=== PATIENT | male | born 2000 | race Two or more races ===

== ENCOUNTER 2023-03-07 09:41 | Outpatient (REF) | payer OTHER, MEDICAID, SELFPAY ==
[2023-03-07 11:45] LABS: Basophils Percent Auto 0.3 % (0-2); Eosinophils Absolute Auto 0.1 X10*3/uL (0.0-0.4); Eosinophils Percent Auto 1.8 % (0-4); Hematocrit 43.1 % (42.0-52.0); Hemoglobin 14.3 g/dl (14.0-18.0); Imm Gran Abs Auto 0.02 X10*3/uL (0.00-0.03); Imm Gran Pct Auto 0.3 % (0.0-0.4); Lymphocytes Absolute Auto 3.7 X10*3/uL (1.2-4.9); Lymphocytes Percent Auto 56.4 % (20-40); MANUAL DIFF FLAG NO; Mean Corpuscular HGB Conc 33.2 g/dl (31.0-36.0); Mean Corpuscular Hemoglobin 29.3 pg (27.0-33.0); Mean Corpuscular Volume 88.3 fL (80.0-98.0); Mean Platelet Volume 9.6 fL (9.4-12.4); Monocytes Absolute Auto 0.7 X10*3/uL (0.1-1.2); Neutrophils Percent Auto 31.2 % (45-73); Platelet Count 238 X10*3/uL (160-400); Red Blood Count 4.88 X10*6/uL (4.60-5.80); Red Cell Distribution Width 12.5 % (11.0-16.0); White Blood Count 6.5 X10*3/uL (4.8-10.8)
[2023-03-07 11:56] LABS: Estimated Average Glucose 91 mg/dL; Hemoglobin A1c % 4.8 %
[2023-03-07 12:15] LABS: ~HepC Num1 0.21 S/CO (0.00-0.79); ~Hepatitis C Antibody Nonreactive (Nonreactive)
[2023-03-07 12:16] LABS: HBS Num1 12.65 mIU/mL (0-7.99); HBc Num1 0.24 S/CO (0.00-0.79); HBsAGNum1 0.43 S/CO (0.00-0.99); HIV AB/AG Nonreactive (Nonreactive); HIV Num 1 0.05 S/CO (0.00-0.99); Hepatitis B Core Antibody Nonreactive (Nonreactive); Hepatitis B Surface Antigen Negative (Negative); ~Hepatitis B Surface Antibody REACTIVE (Nonreactive)
[2023-03-07 12:36] LABS: Alanine Aminotransferase 22 U/L (0-40); Albumin Level 4.1 g/dL (3.5-5.0); Alkaline Phosphatase 57 U/L (39-117); Anion Gap 15 (12-20); Aspartate Amino Transferase 30 U/L (5-37); Bilirubin Total 0.4 mg/dL (0.0-1.0); Blood Urea Nitrogen 10 mg/dL (9-16); Calcium 9.4 mg/dL (8.4-10.2); Carbon Dioxide 20 mmol/L (22-29); Chloride 111 mmol/L (96-108); Cholesterol 140 mg/dL; Estimated Glomerular Filt Rate > 60; Glucose Random 77 mg/dL (60-115); HDL Cholesterol 43 mg/dL; LDL Cholesterol Calculated 78 mg/dl; Potassium 4.7 mmol/L (3.3-5.1); Sodium 141 mmol/L (135-145); Triglycerides 95 mg/dL
[2023-03-07 12:49] LABS: TSH reflex Free T4 3.27 uIU/mL (0.32-4.0)
[2023-03-08 05:07] LABS: Syphilis Screen Nonreactive (Nonreactive)
[2023-03-12 15:38] LABS: VITAMIN D (1,25 OH) D3 32 pg/mL; Vit D (1,25-Dihydroxy) Total 32 pg/mL (18-72); Vitamin D (1,25 OH) D2 <8 pg/mL
== END 2023-03-07 09:42 | disposition home or self-care (01) ==
LOC: HO.HHCL 09:41
PROVIDERS: Visit Provider Student in an Organized Health Care Education/Training Program
DX: Z00.00 Encounter for general adult medical examination without abnormal findings (principal); Z11.4 Encounter for screening for human immunodeficiency virus [HIV]; Z13.220 Encounter for screening for lipoid disorders; Z13.1 Encounter for screening for diabetes mellitus; Z13.29 Encounter for screening for other suspected endocrine disorder
CPT/HCPCS: 36415; 80053; 80061; 82652; 83036; 84443; 85025; 86592; 86704; 86706; 86780; 86803; 87340; 87389

== ENCOUNTER 2024-01-14 07:44 | Outpatient (REF) | payer OTHER, SELFPAY ==
--- NOTE | 2024-01-14 07:52 | EEG_ITS ---
This is a 16-channel EEG with an EKG lead. The patient is reported alert and awake during the tracing. Background EEG rhythm is low amplitude fast with some lead and muscle artifacts. Photic stimulation does not produce any significant driving. Hyperventilation is not performed. Cardiac lead does not reveal any significant abnormality. No sharp wave spikes or paroxysmal tendency noted. IMPRESSION: Unremarkable EEG. MD ROMIE Gallo/ROCAEL / [id number]
== END 2024-01-14 07:45 | disposition home or self-care (01) ==
LOC: HO.NEURO 07:44
PROVIDERS: PCP Student in an Organized Health Care Education/Training Program; Visit Provider Psychiatry & Neurology Neurology
DX: G93.49 Other encephalopathy (principal); G40.909 Epilepsy, unspecified, not intractable, without status epilepticus
CPT/HCPCS: 95816

== ENCOUNTER 2024-03-25 12:31 | Outpatient (REF) | payer OTHER, SELFPAY ==
[2024-03-25 13:31] LABS: Hematocrit 44.9 % (42.0-52.0); Hemoglobin 14.6 g/dl (14.0-18.0); Mean Corpuscular HGB Conc 32.5 g/dl (31.0-36.0); Mean Corpuscular Hemoglobin 28.1 pg (27.0-33.0); Mean Corpuscular Volume 86.3 fL (80.0-98.0); Mean Platelet Volume 9.6 fL (9.4-12.4); Platelet Count 276 X10*3/uL (160-400); Red Cell Distribution Width 12.9 % (11.0-16.0); White Blood Count 8.3 X10*3/uL (4.8-10.8)
[2024-03-25 13:42] LABS: Estimated Average Glucose 97 mg/dL
[2024-03-25 14:06] LABS: Alanine Aminotransferase 21 U/L (0-40); Albumin Level 4.5 g/dL (3.5-5.0); Alkaline Phosphatase 49 U/L (39-117); Anion Gap 12 (12-20); Aspartate Amino Transferase 21 U/L (5-37); Bilirubin Total 0.4 mg/dL (0.0-1.0); Blood Urea Nitrogen 9 mg/dL (9-16); Calcium 9.6 mg/dL (8.4-10.2); Carbon Dioxide 23 mmol/L (22-29); Chloride 110 mmol/L (96-108); Estimated Glomerular Filt Rate > 60; Glucose Random 82 mg/dL (60-115); Potassium 3.9 mmol/L (3.3-5.1); Sodium 141 mmol/L (135-145); Total Protein 8.3 g/dL (6.5-8.0)
[2024-03-25 14:23] LABS: TSH reflex Free T4 3.32 uIU/mL (0.32-4.0); Vitamin D 25-OH Total 26.8 ng/mL (>30)
[2024-03-26 08:21] LABS: Hepatitis A Antibody IgG REACTIVE (Nonreactive); ~Hepatitis A Antibody IgG 10.33 S/CO (0.00-0.99)
[2024-03-28 12:43] LABS: Rubella IgG Antibody 3.22 Index
== END 2024-03-25 12:32 | disposition home or self-care (01) ==
LOC: HO.HHCL 12:31
PROVIDERS: Visit Provider Student in an Organized Health Care Education/Training Program
DX: Z00.00 Encounter for general adult medical examination without abnormal findings (principal); Z13.1 Encounter for screening for diabetes mellitus
CPT/HCPCS: 36415; 80053; 82306; 83036; 84443; 85027; 86708; 86735; 86762; 86765; 86787

== ENCOUNTER 2024-09-09 18:57 | Outpatient (REF) | payer OTHER, SELFPAY ==
--- OUTSIDE RECORDS SUMMARY | 2024-09-09 18:59 | XMS_ITS | Encounter Summary ---
Author Organization [employer] Address [address] [place] [address] 7 [place] [address] Care Team Providers Care Police Detective Name Role Phone Tonia Carlson MD Primary Care Pro vider Reason for Visit * Reason Onset Date Comments New Patient Appt 01/07/2023 Encounter Details Date Type Department Care Team ([facility] st Contact Info) Description 01/07/2023 Telephone [facility] MEDICINE [address] [place] [address] Festus Moreno MD [address] [place] [address] New Patient Appt Social History Tobacco Use Types Packs/Day Years Used Date Smoking Tobacco: Never Assessed Sex and Gender Information Value Date Recorded Sex Assigned at Male 02/04/2023 9:20 AM EDT Legal Sex Male 3:04 PM EDT Gender Identity Male 02/04/2023 9:20 AM EDT Sexual Orientation Straight 02/04/2023 9: 20 AM EDT documented as of this encounter Miscellaneous Notes * Telephone Encounter - Maggie Ramirez - 01/07/2023 1:53 PM EDT PAR Maggie Gregory called pt mother Tonia Chen to Offer RN ENDOSCOPY appt. Pt demographics and insurance information were verified. Mother reports the Following medical conditions: Brain Condition, Microscopic, Developmental Issues, Pilostic, Schizophrenia, and New Skin problem. Mother currently takes Medications: Depaconic 500 mg Tablet, Atiya 200 mg Tablet, Jardiance 40 mg Tablet and desmopressin. RN ENDOSCOPY appt with on 02/04/[address] Almaraz @ 9:15 am. Pt will be sent appt reminder card and medical release form and agrees to complete and to return to medical records prior to RN ENDOSCOPY appt. documented in this encounter Plan of Treatment Upcoming Encounters Date Type Department Care Team (Late st Contact Info) Description 11/10/2024 1:15 PM EDT Office Visit [facility] MEDICINE [address] [place] [address] [phone] Tonia Carlson MD [address] [place] [phone] documented as of this encounter Visit Diagnoses Not on filedocumented in this encounter Care Teams Police Detective Relationship Specialty Start Date End Date Tonia Carlson MD [address] [place] [address] [phone] PCP - General Internal Medicine 02/04/23 documented as of this encounter
--- OUTSIDE RECORDS SUMMARY | 2024-09-09 18:59 | XMS_ITS | Encounter Summary ---
Author Organization [employer] Address [address] 7[address] [place] [address] Care Team Providers Care Clinical Cytopathologist Name Role Phone Tonia Carlson MD Primary Care Pro vider Encounter Details Date Type Department Care Team (Latest Contact Info) Description 09/09/2024 Travel Social History Tobacco Use Types Packs/Day Years Used Date Smoking Tobacco: Never Passive Smoke Exposure: Never Smokeless Tobacco: Never Alcohol Use Standard Drinks/Week Comments Never 0 (1 standard drink = 0.6 oz pur e alcohol) Depression Answer Date Recorded Patient Health Questionnaire-9 Score 0 03/25/2024 Patient Health Questionnaire-9 Score 0 03/25/2024 Last PHQ-9: Questionnaire Data Not on file 0 03/25/2024 Housing Stability Answer Date Recorded What is your housing situation today? I have adonis grullon 05/31/[address] you li ve. Do you have problems with any of the following? None of the above 05/31/2023 Food Insecurity Answer Date Recorded Within the past 12 months, y ou worried that your food would run out before you got money to buy more: Never True 05/31/2023 Within the past 12 months,th e food you bought just didn't last and you didn't have enough money to get more: Never True Transportation Answer Date Recorded In the past 12 months, has l ack of transportation kept you from medical appts, meetings, work or from getting things needed for daily living? No 05/31/2023 Utilities Answer Date Recorded In the past 12 months, has t he electric, gas, oil or water company threatened to shut off services in your home? No 05/31/2023 Depression Answer Date Recorded Patient Health Questionnaire-2 Score 0 03/25/2024 Sex and Gender Information Value Date Recorded Sex Assigned at Male 02/04/2023 9:20 AM EDT Legal Sex Male 3:04 PM EDT Gender Identity Male 02/04/2023 9:20 AM EDT Sexual Orientation Straight 02/04/2023 9: 20 AM EDT documented as of this encounter Plan of Treatment Upcoming Encounters Date Type Department Care Team (Late st Contact Info) Description 11/10/2024 1:15 PM EDT Office Visit [facility] MEDICINE [address] [place] [address] Tonia Carlson MD [address] [place] [phone] documented as of this encounter Visit Diagnoses Not on filedocumented in this encounter Additional Health Concerns Assessment Noted Time PHQ-9 Depression Total Score: 0 03/25/20 24 10:53 AM EDT documented as of this encounter Care Teams Clinical Cytopathologist Relationship Specialty Start Date End Date Tonia Carlson MD [address] [place] [phone] PCP - General Internal Medicine 02/04/23 documented as of this encounter
--- OUTSIDE RECORDS SUMMARY | 2024-09-09 18:59 | XMS_ITS | Encounter Summary ---
Author Organization [employer] Address [address] [place] [address] 7 [place] [address] Care Team Providers Care Mechanical Supervisor Name Role Phone Tonia Carlson MD Primary Care Pro vider Reason for Visit * Reason Onset Date Comments Appointment Request 08/28/2024 Encounter Details Date Type Department Care Team ([facility] st Contact Info) Description 08/28/2024 Telephone [facility]ICINE [address] [place] [address] Tonia Carlson MD [address] [place] [address] Appointment Request Social History Tobacco Use Types Packs/Day Years [...] encounter Miscellaneous Notes * Telephone Encounter - Shirley Márquez RN - 08/31/2024 12:41 PM EST Patient has wheezing when he walks. Mom thinks its because he is fat now . Mother stating she wastold she just needs to call us to get in home appointments. Per message patient can call [facility] and ask for Instead or or other services. Mother stated she can bring him to ED but she was told we schedule the appointment. Advised maybe the nurse she spoke too can but on the floor unaware t=how to do that and patient can call their insurance to see what they offer. Patient verbalized understanding and denied having any further questions or concerns at this time. * Telephone Encounter - Jax Salcido - 08/28/2024 8:11 AM EST TC from pt mom that stated that She spoke with a Nurse that told her that she doesn't have to make Apt with son that they are able to offer her Services at her house. For more information Contact pt mom at [phone] documented in this encounter Plan of Treatment Upcoming Encounters Date Type Department Care Team (Late st Contact Info) Description 11/10/2024 1:15 PM EDT Office Visit [facility] MEDICINE [address] [place] [phone] Tonia Carlson MD [address] [place] [address] documented as of this encounter Visit Diagnoses Not on filedocumented in this encounter Additional Health Concerns Assessment Noted Time PHQ-9 Depression Total Score: 0 03/25/20 24 10:53 AM EDT documented as of this encounter Care Teams Mechanical Supervisor Relationship Specialty Start Date End Date Tonia Carlson MD [address] [place] [address] PCP - General Internal Medicine 02/04/23 documented as of this encounter
--- OUTSIDE RECORDS SUMMARY | 2024-09-09 18:59 | XMS_ITS | Encounter Summary ---
Author Organization [employer] Address [address] [place] [address] 7 [place] [address] Care Team Providers Care Coffee Break Attendant Name Role Phone Tonia Carlson MD Primary Care Pro vider Reason for Visit * Reason Onset Date Comments Nurse Triage 09/03/2024 Encounter Details Date Type Department Care Team ([facility] st Contact Info) Description 09/03/2024 Telephone [facility] MEDICINE [address] [place] [address] Tonia Carlson MD [address] [place] [address] Nurse Triage (/) Social History Tobacco Use Types Packs/Day Years [...] encounter Miscellaneous Notes * Telephone Encounter - Rochelle Nielson LPN - 09/03/2024 8:41 AM EST Triage call returned with BLS #[id number] [facility]. Call placed to patient Mom at listed number x 2 no answer. Additional call placed with BLS #[id number] [place]. Attempted x 2 again no answer. * Telephone Encounter - Jax Salcido - 09/03/2024 8:29 AM EST Symptom: Lethargic (Tired) Outcome: Transfer to a nurse or provider NOW! Reason: Trouble walking The caller accepted this outcome. Contact pt Mom at [phone] documented in this encounter Plan of Treatment Upcoming Encounters Date Type Department Care Team (Late st Contact Info) Description 11/10/2024 1:15 PM EDT Office Visit [facility] MEDICINE [address] [place] [address] [phone] Tonia Carlson MD [address] [place], [place] [phone] documented as of this encounter Visit Diagnoses Not on filedocumented in this encounter Additional Health Concerns Assessment Noted Time PHQ-9 Depression Total Score: 0 03/25/20 10:53 AM EDT documented as of this encounter Care Teams Coffee Break Attendant Relationship Specialty Start Date End Date Tonia Carlson MD [address] [place] [phone] PCP - General Internal Medicine 02/04/23 documented as of this encounter
--- OUTSIDE RECORDS SUMMARY | 2024-09-09 18:59 | XMS_ITS | Encounter Summary ---
Author Organization [employer] Address [address] 7[address] [place] [address] Care Team Providers Care Account Management Specialist Name Role Phone Tonia Carlson MD Primary Care Pro vider Encounter Details Date Type Department Care Team (Late st Contact Info) Description 09/09/2024 10:30 AM EST Office Visit [facility] MEDICINE [address] [place] [address] Joyce River FNP [address] [place] [address] Cough in adult Social History Tobacco Use Types Packs/Day Years Used Date Smoking Tobacco: Never Passive Smoke Exposure: Never Smokeless Tobacco: Never Tobacco Cessation:Counseling Given: Not Answered Alcohol Use Standard Drinks/Week Comments Never 0 [...] AM EDT documented as of this encounter Last Filed Vital Signs Vital Sign Reading Time Taken Comments Blood Pressure 132/86 09/09/2024 10:49 AM EST Pulse 99 09/09/2024 10:48 AM EST Temperature 36.2 ??C (97.1 ??F) 09/09/2024 10:[address] Respiratory Rate 20 09/09/2024 10:48 AM EST Oxygen Saturation 98% 09/09/2024 10:48 AM EST Inhaled Oxygen Concentration - - Weight 85 kg (187 lb 6.4 oz) 09/09/2024 10:48 AM EST Height 162 cm (5' 3.78 ) 09/09/2024 10:48 AM EST Body Mass Index 32.39 09/09/2024 10:48 AM EST documented in this encounter Plan of Treatment Upcoming Encounters Date Type Department Care Team (Late st Contact Info) Description 11/10/2024 1:15 PM EDT Office Visit [facility] MEDICINE [address] [place] [phone] Tonia Carlson MD [address] [place] [address] Scheduled Orders Name Type Priority Associated Diagnoses Orde r Schedule Respiratory Viral Panel PCR Lab Routine Cough in adult Expected: 09/09/2024 (Approximate), Expires: 09/09/2025 documented as of this encounter Procedures Procedure Name Priority Date/Time Associated Diagnosis Comments POCT COVID-19 AG MCKOY ID NOW Routine 09/09/2024 12:26 PM EST Cough in adult POCT INFLUENZA A (ID NOW RAPID MOLECULAR) Routine 09/09/2024 12:25 PM EST Cough in adult POCT INFLUENZA B (ID NOW RAPID MOLECULAR) Routine 09/09/2024 12:24 PM EST Cough in adult documented in this encounter Results * POCT Rapid Covid-19 MCKOY ID NOW (09/09/2024 12:26 PM EST) Pathologist [facility] Coronavirus Antigen PCR Negative Negative, Indeterminate, None Detected, Invalid, Specimen unsatisfactory for evaluation, Weakly Positive QC Media Lot # [id number] Lot# Expiration Date Swab 09/09/2024 12:2 6 PM EST Joyce Phalen FEEDER SWITCHBOARD OPERATOR POINT OF CARE TEST ENTER/EDIT ORDERABLES Final Result * POCT Rapid Influenza A MCKOY ID NOW (09/09/2024 12:25 PM EST) Pathologist [facility] Influenza A Negative Negative, Indeterminate [facility] QC Media Lot # [id number] [facility] Lot# Expiration Date [facility] Swab 09/09/2024 12:2 5 PM EST Joyce Phalen FEEDER SWITCHBOARD OPERATOR POINT OF CARE TEST ENTER/EDIT ORDERABLES Final Result [facility] [address] [place] [phone] * POCT Rapid Influenza B MCKOY ID NOW (09/09/2024 12:24 PM EST) Pathologist [facility] Influenza B Negative Negative, Indeterminate [facility] QC Media Lot # [id number] [facility] Lot# Expiration Date [facility] Swab 09/09/2024 12:2 4 PM EST us Joyce Phalen FEEDER SWITCHBOARD OPERATOR POINT OF CARE TEST ENTER/EDIT ORDERABLES Final Result [facility] [address] [place] [address] [phone] documented in this encounter Visit Diagnoses Diagnosis Cough in adult documented in this encounter Additional Health Concerns Assessment Noted Time PHQ-9 Depression Total Score: 0 03/25/20 24 10:53 AM EDT documented as of this encounter Care Teams Account Management Specialist Relationship Specialty Start Date End Date Toina Carlson MD [address] [place] [address] PCP - General Internal Medicine 02/04/23 documented as of this encounter
--- OUTSIDE RECORDS SUMMARY | 2024-09-09 18:59 | XMS_ITS | Encounter Summary ---
Author Organization [facility] [facility] Address [address] [place] [address] Care Team Providers Care Brine Room Laborer Name Role Phone Tonia Carlson MD Primary Care Pro vider Reason for Visit * Reason Comments Med Refill Encounter Details Date Type Department Care Team (Late Contact Info) Description 04/14/2023 Refill [facility] MEDICINE [address] [place] [address] [phone] Tonia Carlson MD [address] [place] [address] [phone] Social History Tobacco Use Types Packs/Day Years Used Date Smoking Tobacco: Never Passive Smoke Exposure: Never Smokeless Tobacco: Never Alcohol Use Standard Drinks/Week Comments Never 0 (1 standard drink = 0.6 oz pur e alcohol) Depression Answer Date Recorded Patient Health Questionnaire-9 Score 13 02/04/2023 Depression Answer Date Recorded Patient Health Questionnaire-2 Score 3 02/04/2023 Sex and Gender Information Value Date Recorded Sex Assigned at Male 02/04/2023 9:20 AM EDT Legal Sex Male 3:04 PM EDT Gender Identity Male 02/04/2023 9:20 AM EDT Sexual Orientation Straight 02/04/2023 9: 20 AM EDT documented as of this encounter Plan of Treatment Upcoming Encounters Date Type Department Care Team (Late st Contact Info) Description 11/10/2024 1:15 PM EDT Office Visit [facility] MEDICINE [address] [place] [address] [phone] Tonia Carlson MD [address] [place] [address] [phone] documented as of this encounter Visit Diagnoses Not on filedocumented in this encounter Additional Health Concerns Assessment Noted Time PHQ-9 Depression Total Score: 13 023 10:35 AM EDT documented as of this encounter Care Teams Brine Room Laborer Relationship Specialty Start Date End Date Tonia Carlson MD [address] [place] [phone] PCP - General Internal Medicine 02/04/23 documented as of this encounter
--- OUTSIDE RECORDS SUMMARY | 2024-09-09 18:59 | XMS_ITS | Encounter Summary ---
Author Organization [employer] Address [address] [facility] 7t [place] [address] Care Team Providers Care Insurance Investigator Name Role Phone Tonia Carlson MD Primary Care Pro vider Encounter Details Date Type Department Care Team ([facility] st Contact Info) Description 06/29/2024 Orders Only [facility] MEDICINE [address] [place] [address] Tonia Carlson MD [address] [place] [address] Social History Tobacco Use Types Packs/Day Years [...] Description 11/10/2024 1:15 PM EDT Office Visit [facility] MEDICINE [address] [place] [phone] Tonia Carlson MD [address] [place] [phone] documented as of this encounter Visit Diagnoses Not on filedocumented in this encounter Additional Health Concerns Assessment Noted Time PHQ-9 Depression Total Score: 0 03/25/20 24 10:53 AM EDT documented as of this encounter Care Teams Insurance Investigator Relationship Specialty Start Date End Date Tonia Carlson MD [address] [place] [phone] PCP - General Internal Medicine 02/04/23 documented as of this encounter
--- OUTSIDE RECORDS SUMMARY | 2024-09-09 18:59 | XMS_ITS | Clinical Summary ---
Author Organization [employer] Address [address] [place] [address] Care Team Providers Care Dental Nurse Name Role Phone Tonia Carlson MD Primary Care Pro vider Allergies No known active allergies Medications * This document contains information received from the source organization and may not represent a complete record from that organization. divalproex (Depakote) 500 MG EC tablet Take 2 tablets (1,000 mg) by mouth 2 times daily. Do not crush, chew, or split. 120 tablet 2 3 Active benzoyl peroxide (PanOxyl Foaming Wash) 10 % external wash Apply topically in the morning. Use with showers 227 g 3 3 Active LORazepam (Ativan) 0.5 MG tablet TAKE 1 TABLET BY MOUTH EVERY DAY IN THE MORNING 30 tablet 4 Active OLANZapine (ZyPREXA) 2.5 MG tablet 4 Active desmopressin (DDAVP) 0.1 MG tablet TAKE 1 TABLET BY MOUTH AT BEDTIME 90 tablet 4 Active traZODone (Desyrel) 50 MG tablet TAKE 1/2 TO 1 TABLET BY MOUTH AT BEDTIME NEEDED FOR SLEEP 30 tablet 4 Active guanFACINE (Intuniv) 3 mg 24 hr tablet TAKE 1 TABLET BY MOUTH EVERY MORNING 90 tablet 4 Active cholecalciferol (Vitamin D-3) 25 MCG (1000 UT) tablet Take 1 tablet (25 mcg) by mouth Once per day. 90 tablet 1 4 03/30/20 25 Active amoxicillin (Amoxil) 500 MG capsule TAKE 1 CAPSULE BY MOUTH EVERY 8 HOURS WITH FOOD 4 Active topiramate (Topamax) 100 MG tablet Take 1 tablet (100 mg) by mouth 2 times daily. Ordering topiramate 100 mg BID for now until PA for topiramate 200 mg ER daily capsules gets hopefully approved -thanks 60 tablet 2 4 09/28/19 25 Active Active Problems Problem Noted Date Diagnosed Date Anxiety 03/31/2024 Epidermal cyst 03/25/2024 Obesity 03/25/2024 Health care maintenance 02/04/2023 Assessment & Plan (03/06/2023 5:40 PM EDT): -labs x annual exam ordered at previous visit but not done yet -advised to have test done in fasting -mom agreed to have STI testing including HIV to have for baseline ---will call w lab results,otherwise mom will call clinic 1 week after blood is done if not hearing from here. -vaccines: s/P covid 19 x3 , per mother she does not have his vaccine records- ----I requested record to [facility] For previous PCP,beamer operator ,neurologist and vaccine records-still not obtained -referred to ophthalmology -pd to get apt Assessment & Plan (02/04/2023 12:31 PM EDT): -labs x annual exam today in fasting -mom agreed to have STI testing including HIV to have for baseline -vaccines: s/P covid 19 x3 , per mother she does not have his vaccine records- ----I requested record to [facility] For previous PCP,beamer operator ,neurologist and vaccine records -referred to ophthalmology today Seizure disorder 02/04/2023 Assessment & Plan (03/06/2023 5:48 PM EDT): Hx of seizure dx -no active seizure witness lately but mom states usually occurs at bedtime when as a child -continue depakote 2 tab BID and topamax 200 mg Daily -alprazolam 0.5 mg PRN ---request Elise Sherman RN to start contract -if ok to do every 6 mo -referred to neurologist to start care -has apt 03/18/2023 Assessment & Plan (02/04/2023 12:15 PM EDT): Hx of seizure dx -no active seizure witness lately but mom states usually occurs at bedtime when as a child -continue depakote 2 tab BID and topamax 200 mg Daily -alprazolam 0.5 mg PRN -referred today to neurologist to start care Cognitive impairment 02/04/2023 Assessment & Plan (03/06/2023 5:42 PM EDT): Pt w hx of cerebral palsy. w cognitive impairment who depends of his mom for all daily activities as for shower ,dressing,etc.. Pt is verbal and ambulates independently but difficulty -wrote at previous visit letter for pt with his comorbidities and that ideally he will benefit from living in a 1st floor apt -I referred and spoke before w Tiffanie who will call mom to discuss if housing issues and about options for daycare -pt States spoke but never received info that would told will arrive to her house-I am forwarding this note to CM again to f up -will f at next apt and will discuss w mother if would like PROCESSING OPERATOR Assessment & Plan (02/04/2023 12:20 PM EDT): Pt w hx of cerebral palsy. w cognitive impairment who depends of his mom for all daily activities as for shower ,dressing,etc.. Pt is verbal and ambulates independently but difficulty -wrote today letter for pt with his comorbidities and that ideally he will benefit from living in a 1st floor apt -I referred and spoke today w Tiffanie who will call mom to discuss if housing issues and about options for daycare -will f at next apt and will discuss w mother if would like PROCESSING OPERATOR Schizophrenia 02/04/2023 Assessment & Plan (03/06/2023 5:44 PM EDT): Per mom hx of schizophrenia with auditory hallucinations but reports as well Bipolar? -confirmed all meds with pharmacy at [place] at last visit -refilled x now until starts care w specialist -continue ziprasidone 40 mg BID -intuniv 0.3 mg HS x concentration possible x ADHD? -continue desmopressin x bed time urination in bed -MINH Hall did brief visit to pt in room at last apt to give information to mom about options x psychotx and psychiatrist for mom to call x apt --I gave today again to mom printed info of [facility] or her to call Assessment & Plan (02/04/2023 12:22 PM EDT): Per mom hx of schizophrenia with auditory hallucinations but reports as well Bipolar? -confirmed all meds today -refilled x now until starts care w specialist -continue ziprasidone 40 mg BID -intuniv 0.3 mg HS x concentration possible x ADHD? -continue desmopressin x bed time urination in bed - -Lauren did brief visit to pt in room to give information to mom about options x psychotx and psychiatrist for mom to call x apt Resolved Problems Problem Noted Date Diagnosed Date Resolved Date Pityriasis versicolor 12/20/20232023 Encounters Date Type Department Care Team Description 09/09/2024 10:30 AM EST Office Visit [facility] MEDICINE [address] [place] [phone] [place] FNP Cough in adult 09/09/2024 Travel 09/08/2024 Telephone [facility] MEDICINE [address] [place] [phone] Tonia Carlson MD Nurse Triage 09/03/[address] [address] Tonia Carlson MD Nurse Triage (/) 08/28/[address] [address] Tonia Carlson MD Appointment Request 08/03/2024 Telephone [facility] MEDICINE [address] [place] [phone] Tonia Carlson MD Nurse Triage 06/30/2024 Orders Only [facility] WALK-IN C[facility] [address] [place] [phone] Tonia Carlson MD 06/29/2024 Orders Only [facility] MEDICINE [address] [place] [phone] Tonia Carlson MD 06/29/2024 Telephone [facility] MEDICINE [address] [place] [phone] Tonia Carlson MD PA from Last 3 Months Immunizations Name Administration Dates Next Due Influenza injectable quadrivalent preservative f ree 06/20/2023 Tdap 12/20/2023 Family History * Patient is adopted Medical History Relation Name Comments Schizophrenia Maternal Grandmother Relation Name Status Comments Maternal Grandmother Social History Tobacco Use Types Packs/Day Years [...] your housing situation today? I have adonis yadi 05/31/[address] you li [...] the past 12 months, has t he [employer], gas, oil or water company threatened to shut off services in your home? No 05/31/2023 Depression Answer Date Recorded Patient Health Questionnaire-2 Score 0 03/25/2024 Sex and Gender Information Value Date Recorded Sex Assigned at Male 02/04/2023 9:20 AM EDT Legal Sex Male 3:04 PM EDT Gender Identity Male 02/04/2023 9:20 AM EDT Sexual Orientation Straight 02/04/2023 9: 20 AM EDT Last Filed Vital Signs Vital Sign Reading [...] Mass Index 32.39 09/09/2024 10:48 AM EST Plan of Treatment Upcoming Encounters Date Type Department Care Team (Late st Contact Info) Description 11/10/2024 1:15 PM EDT Office Visit [facility] MEDICINE [address] [place] [address] [phone] Tonia Carlson MD [address], [place] [phone] Health Maintenance Due Date Last Done Comments Alcohol/Substance Use Screening 2011 Family Planning (PISQ) 2014 HPV Vaccines (1 - Male 3-dos e series) 2014 Hepatitis B Vaccines (1 of 3 - 19+ 3-dose series) 2018 SDOH Screening 02/05/2024 02/04/2023 COVID-19 Vaccine (1 - 2023-2 5 season) 2024 Influenza Vaccine (#1) 2024 06/20/2023 Depression Screening 03/25/2025 03/25/2024, 03/25/2024 Tobacco Screening 09/09/2025 09/09/2024 Lipid Panel 03/07/2028 03/07/2023 DTaP/Tdap/Td Vaccines (2 - T d or Tdap) 12/19/2033 12/20/2023 Zoster Vaccines (1 of 2) 2049 RSV Patients and Patients Aged 60 years or older (1 - 1-dose 75+ series) 2074 HIV Screening Completed 03/07/2023 Hepatitis C Screening Completed 03/07/2023 HIB Vaccines Aged Out No longer eligi ble based on patient's age to complete this topic Hepatitis A Vaccines Aged Out No long er eligible based on patient's age to complete this topic IPV Vaccines Aged Out No longer eligi ble based on patient's age to complete this topic Meningococcal Vaccine Aged Out No austin klever eligible based on patient's age to complete this topic Pneumococcal Vaccine: Pediatrics (0 to 5 Years) and At-Risk Patients (6 to 49) Years) Aged Out No longer eligible b ased on patient's age to complete this topic RSV under 20 months Aged Out No longe r eligible based on patient's age to complete this topic Rotavirus Vaccines Aged Out No longer eligible based on patient's age to complete this topic Procedures Procedure Name Priority Date/Time Associated Diagnosis Comments POCT COVID-19 AG MCKOY ID NOW Routine 09/09/2024 12:26 PM EST Cough in adult POCT INFLUENZA A (ID NOW RAPID MOLECULAR) Routine 09/09/2024 12:25 PM EST Cough in adult POCT INFLUENZA B (ID NOW RAPID MOLECULAR) Routine 09/09/2024 12:24 PM EST Cough in adult HEPATITIS C ANTIBODY REFLEX Routine 03/07/2023 9:50 AM EDT HIV ANTIBODY/ANTIGEN ([place] DPH) Routine 03/07/2023 9:50 AM EDT LIPID PANEL, STANDARD Routine 03/07/2023 9:50 AM EDT Health care maintenance from Last 3 Months or Most Recently Relevant to Health Maintenance Results * POCT Rapid Covid-19 MCKOY ID NOW (09/09/2024 12:26 PM EST) Coronavirus Antigen PCR Negative Negative, Indeterminate, None Detected, Invalid, Specimen unsatisfactory for evaluation, Weakly Positive QC Media Lot # [id number] Lot# Expiration Date [id number] Swab 09/09/2024 12:2 6 PM EST [place] INVESTIGATIONS CHIEF POINT OF CARE TEST ENTER/EDIT ORDERABLES Final Result * POCT Rapid Influenza A MCKOY ID NOW (09/09/2024 12:25 PM EST) Influenza A Negative Negative, Indeterminate [facility] QC Media Lot # [id number] [facility] Lot# Expiration Date [facility] Swab 09/09/2024 12:2 5 PM EST us [place] INVESTIGATIONS CHIEF POINT OF CARE TEST ENTER/EDIT ORDERABLES Final Result Performing Organization Address [facility] Co de Phone Number [facility] [address] [place] [phone] * POCT Rapid Influenza B MCKOY ID NOW (09/09/2024 12:24 PM EST) [facility] Influenza B Negative Negative, Indeterminate [facility] QC Media Lot # [id number] [facility] Lot# Expiration Date [facility] Swab 09/09/2024 12:2 4 PM EST us [place] INVESTIGATIONS CHIEF POINT OF CARE TEST ENTER/EDIT ORDERABLES Final Result Performing Organization Address [facility] Phone Number [facility] [address] [place] [phone] * Hepatitis C Antibody Reflex (03/07/2023 9:50 AM EDT) [facility] Hepatitis C Antibody Nonreactive Nonreactive [facility] Comment:Antibodies to HCV no t detected; does not exclude early acuteHCV infection. 03/07/2023 9:50 AM EDT 03/07/2023 11:21 AM EDT us Tonia Canchola MD LAB BLOOD ORDERAB LES Final Result Performing Organization Address [facility] Co de Phone Number [facility] [address] [place] [phone] * HIV Ab/Ag ([facility]) (03/07/2023 9:50 AM EDT) HIV AB/AG Nonreactive Nonreactive [facility] Comment:HIV-1 p24 Ag and/or HIV-1/HIV-2 Ab not detected.A test result that is nonreactive does not exclude thepossibility of exposure to or infection with HIV-1 and/orHIV-2. Nonreactive results in this assay for individualswith prior exposure to HIV-1 and/or HIV-2 may be due toantigen and antibody levels that are below the limit ofdetection of this assay.The Mck[employer] Material Flow Engineer HIV Ag/Ab Combo assay result andsupplemental assay results should be interpreted inconjunction with the patient's clinical presentation,history and other laboratory results. If the results areinconsistent with clinical evidence, additional testing issuggested to confirm the result. 03/07/2023 9:50 AM EDT 03/07/2023 11:21 AM EDT us Tonia Canchola MD LAB BLOOD ORDERAB LES Final Result [facility] [address] [place] [phone] * Lipid Panel, Standard (03/07/2023 9:50 AM EDT) Triglycerides 95 mg/dL [facility] Comment:Desirable Triglyceri de: less than 150 mg/dLBorderline High Triglyceride 150-199 mg/dLHigh Triglyceride: 200-499 mg/dLVery High Triglyceride: greater than or equal to 5OO mg/dL Cholesterol 140 mg/dL [facility] Comment:Desirable Cholestero l: less than 200 mg/dLBorderline High Cholesterol: 200-239 mg/dLHigh Cholesterol: greater than 239 mg/dL LDL Cholesterol Calculated 78 mg/dl [facility] Comment:Desirable LDL: less than 100 mg/dLNear Optimal/Above Optimal LDL: 110- 129 mg/dLBorderline High LDL: 130-159 mg/dLHigh LDL: 160-189 mg/dLVery High LDL: greater than or equal to 190 mg/dL HDL Cholesterol 43 mg/dL [facility] Comment:Desirable HDL: great er than 40 mg/dL Note: This HDL assay may give artificially low results in patients with liver disease. Blood Venous blood specimen / Unknown 03/07/2023 9:50 AM EDT 03/07/2023 11:21 AM EDT Tonia Canchola MD LAB BLOOD ORDERAB LES Final Result [facility] [address] [place] [phone] from Last 3 Months or Most Recently Relevant to Health Maintenance Insurance [facility] Care Teams Dental Nurse Relationship Specialty Start Date End Date Tonia Carlson MD [address] [place] [address] PCP - General Internal Medicine 02/04/23
--- OUTSIDE RECORDS SUMMARY | 2024-09-09 18:59 | XMS_ITS | Encounter Summary ---
Author Organization [email or web address] Address [address] [facility] [address]t [place] [address] Care Team Providers Care Kaiako Kura Tuarua Name Role Phone Tonia Carlson MD Primary Care Pro vider Encounter Details Date Type Department Care Team ([facility] st Contact Info) Description 06/30/2024 Orders Only [facility] WALK-IN CENTER [address] [place] [address] Tonia Carlson MD [address] [place] [address] Social History Tobacco Use Types Packs/Day Years [...] Description 11/10/2024 1:15 PM EDT Office Visit [facility] MEDICINE [address] [place] [phone] Tonia Carlson MD [address] [place] [phone] documented as of this encounter Visit Diagnoses Not on filedocumented in this encounter Additional Health Concerns Assessment Noted Time PHQ-9 Depression Total Score: 0 03/25/20 24 10:53 AM EDT documented as of this encounter Care Teams Kaiako Kura Tuarua Relationship Specialty Start Date End Date Tonia Carlson MD [address] [place] [phone] PCP - General Internal Medicine 02/04/23 documented as of this encounter
--- OUTSIDE RECORDS SUMMARY | 2024-09-09 18:59 | XMS_ITS | Encounter Summary ---
Author Organization [employer] Address [address] [place] [address] 7 [place] [address] Care Team Providers Care Slab Worker Name Role Phone Tonia Carlson MD Primary Care Pro vider Reason for Visit * Reason Onset Date Comments Nurse Triage 09/08/2024 Encounter Details Date Type Department Care Team ([facility] st Contact Info) Description 09/08/2024 Telephone [facility] MEDICINE [address] [place] [address] Tonia Carlson MD [address] [place] [address] Nurse Triage Social History Tobacco Use Types Packs/Day Years [...] encounter Miscellaneous Notes * Telephone Encounter - Hortensia Rosario RN - 09/08/2024 9:49 AM EST Images from the original note were not included. Reports pt becomes easily fatigued with exertion. Per mom pt also having increased snoring at night. Pt has gained some weight. Per mom pt also having nasal congestion. Per mom reports having cough. Denies any wheezing. Denies any hx of asthma. No swelling of hand, feet or face. Mom advised of disposition, agrees to sick on site with Green Team. Protocol Used: Weakness (Generalized) and Fatigue (Adult) Protocol-Based Disposition: See in Office or Video Visit within 3 Days Future Appointments Date Time Provider Department Center 09/09/2024 11:00 AM Sherrell Lucia MD MEDICINE [facility] Video visit offer not recorded Positive Triage Question: * Fatigue (i.e., tires easily, decreased energy) and persists > 1 week * All higher-acuity triage questions were negative Care Advice Discussed: * Reasons To Call Back - Breathing difficulty occurs - You become worse * Telephone Encounter - Rita Villasenor - 09/08/2024 9:06 AM EST Pt 1/2 Symptom: Lethargic (Tired) (fatigue when walk) Outcome: Schedule an appointment to be seen within 3 days Reason: Caller denied all higher acuity questions The caller accepted this outcome. [phone] Cuban documented in this encounter Plan of Treatment Upcoming Encounters Date Type Department Care Team (Late st Contact Info) Description 11/10/2024 1:15 PM EDT Office Visit [facility] MEDICINE [address] [place] [address] Tonia Carlson MD [address] [place] [address] documented as of this encounter Visit Diagnoses Not on filedocumented in this encounter Additional Health Concerns Assessment Noted Time PHQ-9 Depression Total Score: 0 03/25/20 24 10:53 AM EDT documented as of this encounter Care Teams Slab Worker Relationship Specialty Start Date End Date Tonia Carlson MD [address] [place] [address] [phone] PCP - General Internal Medicine 02/04/23 documented as of this encounter
[2024-09-10 10:37] LABS: Adenovirus PCR Not Detected (Not Detect.); Bordetella parapertussis PCR Not Detected (Not Detect.); Bordetella pertussis PCR Not Detected (Not Detect.); Chlamydia pneumoniae PCR Not Detected (Not Detect.); Coronavirus 229E PCR Not Detected (Not Detect.); Coronavirus HKU1 PCR Not Detected (Not Detect.); Coronavirus NL63 PCR Not Detected (Not Detect.); Coronavirus OC43 PCR Not Detected (Not Detect.); Human metapneumovirus PCR Not Detected (Not Detect.); Influenza A PCR Not Detected (Not Detect.); Influenza B PCR Not Detected (Not Detect.); Mycoplasma pneumoniae PCR Not Detected (Not Detect.); Parainfluenza 1 PCR Not Detected (Not Detect.); Parainfluenza 2 PCR Not Detected (Not Detect.); Parainfluenza 3 PCR Not Detected (Not Detect.); Parainfluenza 4 PCR Not Detected (Not Detect.); RSV PCR Detected (Not Detect.); Rhino/Enterovirus PCR Not Detected (Not Detect.); SARS-CoV-2 PCR Not Detected (Not Detect.)
== END 2024-09-09 18:58 | disposition home or self-care (01) ==
LOC: HO.HHCLNP 18:57
PROVIDERS: Visit Provider Registered Nurse
DX: R05.9 Cough, unspecified (principal)
CPT/HCPCS: 87633

== ENCOUNTER → 2024-11-25 19:00 | Outpatient (BNV) | payer OTHER, SELFPAY | PROVIDERS: PCP Student in an Organized Health Care Education/Training Program; Visit Provider Internal Medicine | DX: G47.61 Periodic limb movement disorder (principal) | CPT/HCPCS: 95810 ==

== ENCOUNTER → 2024-11-25 19:35 | Outpatient (REF) | payer OTHER, SELFPAY | LOC: HO.SL 19:35 | PROVIDERS: PCP Student in an Organized Health Care Education/Training Program; Visit Provider Registered Nurse | DX: E66.811 Obesity, class 1 (principal); E66.09 Other obesity due to excess calories; Z68.32 Body mass index [BMI] 32.0-32.9, adult; R06.83 Snoring; R40.0 Somnolence | CPT/HCPCS: 95810 ==

== ENCOUNTER 2025-03-29 14:27 | Outpatient (AMB) | payer OTHER, SELFPAY ==
--- NOTE | 2025-03-29 15:00 | MHC.OFFVIS ---
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 Seizures included blinking, passing out, and incontinence. He was doing okay. No seizures or spells. No medication side effects. REPLACED BY [facility] Medical History (Updated 03/29/25 @ 15:01 by Elida Simental CNP) Microcephaly Epilepsy Chronic static encephalopathy Physical Exam Const Other: General Appearance:? normal, in no acute distress. Skin:? no rashes, no significant birthmarks. Heart:? S1, S2 normal, no murmurs. Lungs:? clear anteriorly and posteriorly. Extremities:? no edema. Psych:? alert, cooperative with exam. Neuro Other: Mental Status:?Alert and awake, minimally talkative, smiling, and sometimes clapping Cranial Nerves:?Pupils are equal, round and reactive to light. External occular muscles are intact. Visual lee are full. Face is symmetrical. Facial sensations are normal. Tongue is midline. Palate elevates symmetrically. Shoulder shrugging is normal. Hearing to bedside conversation is normal. Motor Examination:?DTR trace to absent. Sensory Exam:?....? Coordination:?No ataxia,?no titubation.? Gait Exam: Within normal limits. Cerebellar Signs:?[id number] is okay. Extrapyramidal System:?No tremor, rigidity with normal facial expressions.? Pronator Drift:?Not present.? Involuntary Movements:?No tremors seen.? Speech:?Normal.? Results Reviewed Results Reviewed: EEG at [facility] in January 2024: WNL Assessment & Plan Assessment & Plan (1) Epilepsy: Code(s): G40.909 - Epilepsy, unspecified, not intractable, without status epilepticus Category: Medical Qualifiers: Epilepsy type: unspecified Intractability: not intractable Status epilepticus: without status epilepticus Qualified Code(s): G40.909 - Epilepsy, unspecified, not intractable, without status epilepticus Plan: Continue divalproex sodium tablet delayed release 500mg 2 tablets twice a day. Continue topiramate ER 200mg 1 capsule daily (2) Chronic static encephalopathy: Code(s): G93.49 - Other encephalopathy Category: Medical Plan . Medications: New topiramate XR 200 mg PO DAILY 90 caps 1RF 90 days divalproex 1,000 mg (2 x 500 mg) PO BID 360 tabs 1RF 90 days Coding Level of Care Code Est Pt Level 4 (33260) Diagnoses Nonintractable epilepsy without status epilepticus, unspecified epilepsy type G40.909 Epilepsy type: unspecified Intractability: not intractable Status epilepticus: without status epilepticus Chronic static encephalopathy G93.49
--- OUTSIDE RECORDS SUMMARY | 2025-03-29 16:10 | XMS_ITS | Encounter Summary ---
Author Organization [employer] Address [address] [facility] [address] [place] [address] Care Team Providers Care Industrial Machinery Mechanic Name Role Phone Tonia Carlson MD Primary Care Pro vider Encounter Details Date Type Department Care Team ([facility] st Contact Info) Description 06/30/2024 Orders Only [facility] WALK-IN CENTER [address] [place] [address] Tonia Carlson MD [address] [place] [address] Social History Tobacco Use Types Packs/Day Years [...] Care Team (Late st Contact Info) Description 04/09/2025 1:45 PM EDT Office Visit [facility] MEDICINE [address] [place] [phone] Tonia Carlson MD [address] [place] [phone] documented as of this encounter Visit Diagnoses Not on filedocumented in this encounter Additional Health Concerns Assessment Noted Time PHQ-9 Depression Total Score: 0 03/25/20 24 10:53 AM EDT documented as of this encounter Care Teams Industrial Machinery Mechanic Relationship Specialty Start Date End Date Tonia Carlson MD [address] [place] [phone] PCP - General Internal Medicine 02/04/23 documented as of this encounter
--- OUTSIDE RECORDS SUMMARY | 2025-03-29 16:10 | XMS_ITS | Encounter Summary ---
Author Organization [employer] Address [address] [place] [address] 7 [place] [address] Care Team Providers Care Chief Engineer Production Name Role Phone Tonia Carlson MD Primary Care Pro vider Reason for Visit * Reason Onset Date Comments PA 06/29/2024 Encounter Details Date Type Department Care Team ([facility] st Contact Info) Description 06/29/2024 Telephone [facility] MEDICINE [address] [place] [address] Tonia Carlson MD [address] [place] [address] PA Social History Tobacco Use Types Packs/Day Years [...] encounter Miscellaneous Notes * Telephone Encounter - Sonja Mcdonough RN - 06/30/2024 1:44 PM EST Called pt's mother (legal guardian) to advise of below message from PCP. Advised pt's mom that: - Topiramate 100mg IR BID is recommended for the pt to take now while waiting for insurance companyto approve the 200mg ER. Med is available for garbage pick up man now at [facility] - advised her to read instructions carefully and call [facility] if any questions Pt's mom verbalized understanding, says she called Dr Mcdonnell and scheduled pt appt for August. PA generated, johnson: BRITT. Will task to check on status. -- Dr Almaraz I spoke chase Baumann at pharmacy and I was rec to prescribe Topiramate 100 mg IR BID for now until PA for topiramate 200 mg ER daily capsules gets hopefully approved Please can you inform mother about this prescription and please check w PA team to start to work on200 mg ER daily capsule PA Also please can you advise pt's mom to reschedule apt w neurologist given lost care * Telephone Encounter - Sonja Mcdonough RN - 06/30/2024 10:24 AM EST Called pt's mother Tonia (legal guardian) using [employer] capacity planner #[id number] [place]. Tonia declined compacting machine operator/tender. Advised her that per PCP, topiramate 200mg ER only comes as a capsule and PCP recommends that the pt request this med and all anti seizure meds through Dr Mcdonnell (neurologist). Gave phone number to call his office [phone]. Called [facility] pharmacy and spoke to Ibis who stated that she called Dr Mcdonnell's office yesterday cailin have not seen the pt in over 1 year and no-showed multiple times and she is unsure if neuro will write the prescription. Ibis stated she will call Dr Almaraz directly about this. -- Dr Almaraz: Confirmed with his pharmacy here and there are no ER tablets only IR. 200 mg ER comes only as capsule , so pt will need to take twice a day med . Pt is following w neurologist so I request to our pharmacy to follow with his neurologist Dr Mcdonnell in regards med and further refills for his anti seizures meds Please can you inform his mother about this * Telephone Encounter - Marry Canchola LPN - 06/29/2024 10:24 AM EST Pa required for Medication below , If changed to Tables No Pa needed please review and advise, Tc from pt calling to inform a PA is needed for medication Topiramate ER 200 MG capsule sustained-release 24 hr . * Telephone Encounter - Teagan Aguilera - 06/29/2024 8:10 AM EST Tc from pt calling to inform a PA is needed for medication Topiramate ER 200 MG capsule sustained-release 24 hr . documented in this encounter Plan of Treatment Upcoming Encounters Date Type Department Care Team (Late st Contact Info) Description 04/09/2025 1:45 PM EDT Office Visit [facility] MEDICINE [address] [place] [address] Tonia Carlson MD [address] [place] [address] documented as of this encounter Visit Diagnoses Not on filedocumented in this encounter Additional Health Concerns Assessment Noted Time PHQ-9 Depression Total Score: 0 03/25/20 24 10:53 AM EDT documented as of this encounter Care Teams Chief Engineer Production Relationship Specialty Start Date End Date Tonia Carlson MD [address] [place] [phone] PCP - General Internal Medicine 02/04/23 documented as of this encounter
--- OUTSIDE RECORDS SUMMARY | 2025-03-29 16:10 | XMS_ITS | Encounter Summary ---
Author Organization [employer] Address [address] [facility] 7 [place] [address] Care Team Providers Care Blueprint Developer Name Role Phone Tonia Carlson MD Primary Care Pro vider Reason for Visit * Reason Comments Med Refill Encounter Details Date Type Department Care Team ([facility] Contact Info) Description 12/23/2024 Refill [facility] MEDICINE [address] [place] [address] Tonia Carlson MD [address] [place] [address] Social History Tobacco Use Types Packs/Day Years [...] Description 04/09/2025 1:45 PM EDT Office Visit [facility] MEDICINE [address] [place] [phone] Tonia Carlson MD [address] [place] [address] documented as of this encounter Visit Diagnoses Not on filedocumented in this encounter Additional Health Concerns Assessment Noted Time PHQ-9 Depression Total Score: 0 03/25/20 24 10:53 AM EDT documented as of this encounter Care Teams Blueprint Developer Relationship Specialty Start Date End Date Tonia Carlson MD [address] [place] [phone] PCP - General Internal Medicine 02/04/23 documented as of this encounter
--- OUTSIDE RECORDS SUMMARY | 2025-03-29 16:10 | XMS_ITS | Encounter Summary ---
Author Organization [employer] Address [address] [facility] 7t [place] [address] Care Team Providers Care Retail Greeter Name Role Phone Tonia Carlson MD Primary Care Pro vider Encounter Details Date Type Department Care Team ([facility] st Contact Info) Description 06/29/2024 Orders Only [facility] MEDICINE [address] [place] [address] Tonia Carlson MD [address] [place] [address] Social History Tobacco Use Types Packs/Day Years [...] Description 04/09/2025 1:45 PM EDT Office Visit [facility] MEDICINE [address] [place] [phone] Tonia Carlson MD [address] [place] [phone] documented as of this encounter Visit Diagnoses Not on filedocumented in this encounter Additional Health Concerns Assessment Noted Time PHQ-9 Depression Total Score: 0 03/25/20 24 10:53 AM EDT documented as of this encounter Care Teams Retail Greeter Relationship Specialty Start Date End Date Tonia Carlson MD [address] [place] [phone] PCP - General Internal Medicine 02/04/23 documented as of this encounter
--- OUTSIDE RECORDS SUMMARY | 2025-03-29 16:10 | XMS_ITS | Clinical Summary ---
Author Organization [employer] Address [address] [facility] [address] 7[address] [place] [address] Care Team Providers Care Learning Consultant Name Role Phone Tonia Carlson MD Primary [...] 4 Active cholecalciferol (Vitamin D-3) 25 MCG tablet Take 1 tablet by mouth Once per day. 90 tablet 1 5 Active topiramate (Topamax) 100 MG tablet Take 1 tablet (100 mg) by mouth 2 times daily. 60 tablet 5 Active Active Problems Problem Noted Date Diagnosed Date Anxiety 03/31/2024 Epidermal cyst 03/25/2024 Obesity 03/25/2024 Assessment & Plan (09/10/2024 7:42 PM EST): - Suspect deconditioning and 10lbs weight gain over the past 6 mo contributing to symptom presentation - TSH, A1c, and CMP unremarkable March 2024 - Encouraged healthy lifestyle interventions including goal of at least 150 mins/week of physical activity, as well as nutritious, well balanced diet with high fiber intake Health care maintenance 02/04/2023 Assessment & Plan [...] requested record to [facility] For previous PCP,mud boss ,neurologist and vaccine records-still not obtained -referred to ophthalmology -pd to get apt Assessment & Plan (02/04/2023 12:31 PM EDT): -labs x annual exam today in fasting -mom agreed to have STI testing including HIV to have for baseline -vaccines: s/P covid 19 x3 , per mother she does not have his vaccine records- ----I requested record to [facility] For previous PCP,mud boss ,neurologist and vaccine records -referred to ophthalmology [...] will discuss w mother if would like ENVELOPE STUFFER Assessment & Plan (02/04/2023 12:20 PM EDT): [...] will discuss w mother if would like ENVELOPE STUFFER Schizophrenia 02/04/2023 Assessment & Plan (03/06/2023 5:44 PM EDT): Per mom hx of schizophrenia with auditory hallucinations but reports as well Bipolar? -confirmed all meds with pharmacy at [place] at last visit -refilled x now until [...] today again to mom printed info of [facility] or her to call Assessment & [...] Encounters Date Type Department Care Team Description 02/15/2025 Orders Only [facility] MEDICINE [address] [place] [phone] Tonia Carlson MD Epidermal cyst (Primary Dx); Skin lesions 02/12/2025 Telephone [facility] MEDICINE [address] [place], [place] [phone] Tonia Carlson MD Appointment Request from Last 3 Months Immunizations Immunization Administration Dates Next Due Influenza injectable quadrivalent [...] 99 09/09/2024 10:48 AM EST Temperature 36.2 C (97.1 F) 09/09/2024 10:48 AM EST Respiratory Rate 20 09/09/2024 10:48 AM EST [...] [facility] [address] [place] [address] Tonia Carlson MD [address] [place] [address] Health Maintenance Due Date Last Done Comments Disability Screening 1999 Alcohol/Substance Use Screening 2011 Family Planning (PISQ) 2014 HPV Vaccines (1 - Male 3-dos e series) 2014 Hepatitis B Vaccines (1 of 3 - 19+ 3-dose series) 2018 SDOH Screening 02/05/2024 02/04/2023 COVID-19 Vaccine (1 - 2023-2 5 season) 2024 Depression Screening 03/25/2025 03/25/2024, 03/25/2024 Influenza Vaccine (#1) 2025 06/20/2023 Tobacco Screening 09/09/2025 09/09/2024 Lipid Panel 03/07/2028 [...] patient's age to complete this topic Meningococcal B Vaccine Aged Out No l onger eligible based on patient's age to complete this topic Meningococcal Vaccine Aged Out No austin klever eligible based on patient's age to complete this topic Pneumococcal Vaccine: Pediatrics (0 to 5 Years) and At-Risk Patients (6 to 49) Years Aged Out No longer eligible b ased on patient's age to complete this topic RSV under 20 months Aged Out No longe r eligible based on patient's age to complete this topic Rotavirus Vaccines Aged Out No longer eligible based on patient's age to complete this topic Procedures Procedure Name Priority Date/Time Associated Diagnosis Comments HEPATITIS C ANTIBODY REFLEX Routine 03/07/2023 9:50 AM EDT HIV ANTIBODY/ANTIGEN ([place] [facility]) Routine 03/07/2023 9:50 AM EDT LIPID PANEL, STANDARD Routine 03/07/2023 9:50 AM EDT Health care maintenance from Last 3 Months or Most Recently Relevant to Health Maintenance Results * Hepatitis C Antibody Reflex (03/07/2023 9:50 AM EDT) Hepatitis C Antibody Nonreactive Nonreactive [facility] Comment:Antibodies to HCV no t detected; does not exclude early acuteHCV infection. 03/07/2023 9:50 AM EDT 03/07/2023 11:21 AM EDT us Tonia Canchola MD LAB BLOOD ORDERAB LES Final Result Performing Organization Address [facility] Co de Phone Number [facility] [address] [place] [phone] * HIV Ab/Ag ([facility]) (03/07/2023 9:50 AM EDT) HIV AB/AG Nonreactive Nonreactive [facility] Comment:HIV-1 p24 Ag and/or HIV-1/HIV-2 Ab not detected.A test result that is nonreactive does not exclude thepossibility of exposure to or infection with HIV-1 and/orHIV-2. Nonreactive results in this assay for individualswith prior exposure to HIV-1 and/or HIV-2 may be due toantigen and antibody levels that are below the limit ofdetection of this assay.The [employer] HIV Ag/Ab Combo assay result andsupplemental assay results should be interpreted inconjunction with the patient's clinical presentation,history and other laboratory results. If the results areinconsistent with clinical evidence, additional testing issuggested to confirm the result. 03/07/2023 9:50 AM EDT 03/07/2023 11:21 AM EDT us Tonia Canchola MD LAB BLOOD ORDERAB LES Final Result Performing Organization Address [facility] Co de Phone Number [facility] [address] [place] [address] [phone] * Lipid Panel, Standard (03/07/2023 9:50 AM EDT) Triglycerides 95 mg/dL [facility] Comment:Desirable Triglyceri de: less than 150 mg/dLBorderline High Triglyceride 150-199 mg/dLHigh Triglyceride: 200-499 mg/dLVery High Triglyceride: greater than or equal to 5OO mg/dL Cholesterol 140 mg/dL [facility] Comment:Desirable Cholestero l: less than 200 mg/dLBorderline High Cholesterol: 200-239 mg/dLHigh Cholesterol: greater than 239 mg/dL LDL Cholesterol Calculated 78 mg/dl [facility] Comment:Desirable LDL: less than 100 mg/dLNear Optimal/Above Optimal LDL: 110- 129 mg/dLBorderline High LDL: 130-159 mg/dLHigh LDL: 160-189 mg/dLVery High LDL: greater than or equal to 190 mg/dL HDL Cholesterol 43 mg/dL [facility] Comment:Desirable HDL: great er than 40 mg/dL Note: This HDL assay may give artificially low results in patients with liver disease. Blood Venous blood specimen / Unknown 03/07/2023 9:50 AM EDT 03/07/2023 11:21 AM EDT us Tonia Canchola MD LAB BLOOD ORDERAB LES Final Result [facility] [address] [place] [address] [phone] from Last 3 Months or Most Recently Relevant to Health Maintenance Insurance [employer] CARE < 65 Care Teams Learning Consultant Relationship Specialty Start Date End Date Tonia Carlson MD [address] [place] [address] [phone] PCP - General Internal Medicine 02/04/23
--- OUTSIDE RECORDS SUMMARY | 2025-03-29 16:10 | XMS_ITS | Encounter Summary ---
Author Organization [employer] Address [address] [place] [address] 7 [place] [address] Care Team Providers Care E Commerce Merchant Name Role Phone Tonia Carlson MD Primary Care Pro vider Reason for Visit * Reason Onset Date Comments New Patient Appt 01/07/2023 Encounter Details Date Type Department Care Team ([facility] st Contact Info) Description 01/07/2023 Telephone [facility] MEDICINE [address] [place] [address] Festus Moreno MD [address] [place] [address] New Patient Appt Social History Tobacco Use [...] called pt mother Tonia Chen to Offer CINDER BLOCK MAKER appt. Pt demographics and insurance information were verified. Mother reports the Following medical conditions: Brain Condition, Microscopic, Developmental Issues, Pilostic, Schizophrenia, and New Skin problem. Mother currently takes Medications: Depaconic 500 mg Tablet, Atiya 200 mg Tablet, Jardiance 40 mg Tablet and desmopressin. CINDER BLOCK MAKER appt with on 02/04/[address] Almaraz @ 9:15 am. Pt will be sent appt reminder card and medical release form and agrees to complete and to return to medical records prior to CINDER BLOCK MAKER appt. documented in this encounter Plan of Treatment Upcoming Encounters Date Type Department Care Team (Late st Contact Info) Description 04/09/2025 1:45 PM EDT Office Visit [facility] MEDICINE [address] [place] [address] [phone] Tonia Carlson MD [address] [place] [phone] documented as of this encounter Visit Diagnoses Not on filedocumented in this encounter Care Teams E Commerce Merchant Relationship Specialty Start Date End Date Tonia Carlson MD [address] [place] [address] [phone] PCP - General Internal Medicine 02/04/23 documented as of this encounter
--- OUTSIDE RECORDS SUMMARY | 2025-03-29 16:10 | XMS_ITS | Encounter Summary ---
Author Organization [facility] Address [address] [place] [address] Care Team Providers Care Plant Operations Coordinator Name Role Phone Tonia Carlson MD Primary Care Pro vider Reason for Visit * Reason Comments Med Refill Encounter Details Date Type Department Care Team (Late Contact Info) Description 04/14/2023 Refill [facility] MEDICINE [address] [place] [address] [phone] Tonia Carlson MD [address] [place] [address] [phone] Social History Tobacco Use Types Packs/Day Years [...] Encounters Date Type Department Care Team (Late Contact Info) Description 04/09/2025 1:45 PM EDT Office Visit [facility] MEDICINE [address] [place] [address] [phone] Tonia Carlson MD [address] [place] [address] [phone] documented as of this encounter Visit Diagnoses Not on filedocumented in this encounter Additional Health Concerns Assessment Noted Time PHQ-9 Depression Total Score: 13 023 10:35 AM EDT documented as of this encounter Care Teams Plant Operations Coordinator Relationship Specialty Start Date End Date Tonia Carlson MD [address] [place] [phone] PCP - General Internal Medicine 02/04/23 documented as of this encounter
== END 2025-03-29 15:08 | disposition home or self-care (01) ==
LOC: HO.HSM 14:29
PROVIDERS: PCP Student in an Organized Health Care Education/Training Program; Referring Provider Student in an Organized Health Care Education/Training Program; Visit Provider Registered Nurse
DX: G40.909 Epilepsy, unspecified, not intractable, without status epilepticus (principal); G93.49 Other encephalopathy
CPT/HCPCS: 99214

== ENCOUNTER → 2025-03-29 14:27 | Outpatient (BNVA) | payer OTHER, SELFPAY | PROVIDERS: PCP Student in an Organized Health Care Education/Training Program; Referring Provider Student in an Organized Health Care Education/Training Program; Visit Provider Registered Nurse | DX: G40.909 Epilepsy, unspecified, not intractable, without status epilepticus (principal); G93.49 Other encephalopathy | CPT/HCPCS: 99212 ==

== ENCOUNTER 2025-04-12 08:27 | Outpatient (REF) | payer OTHER, SELFPAY ==
--- OUTSIDE RECORDS SUMMARY | 2025-04-09 13:45 | XMS_ITS | Encounter Summary ---
Author Organization [email or web address] Address [address] [place] [address] 7[address] [place] [address] Care Team Providers Care Ground Instructor Basic Name Role Phone Tonia Carlson MD Primary Care Pro vider Encounter Details Date Type Department Care Team ([facility] st Contact Info) Description 04/09/2025 1:45 PM EDT Office Visit [facility] [address] [place] [address] Tonia Carlson MD [address] [place] [address] Health care maintenance (Primary Dx); Dietary counseling; Exercise counseling; Schizophrenia, unspecified type (CMS/HCC); Seizure disorder (CMS/HCC); Skin rash Social History Tobacco Use Types Packs/Day Years [...] housing situation today? I have adonis grullon 04/02/[address] you li ve. Do you have problems with any of the following? None of the above 04/02/2025 Food Insecurity Answer Date Recorded Within the past 12 months, y ou worried that your food would run out before you got money to buy more: Never True 04/02/2025 Within the past 12 months,th e food you bought just didn't last and you didn't have enough money to get more: Never True Transportation Answer Date Recorded In the past 12 months, has l ack of transportation kept you from medical appts, meetings, work or from getting things needed for daily living? No 04/02/2025 Utilities Answer Date Recorded In the past 12 months, has t he electric, gas, oil or water company threatened to shut off services in your home? No 04/02/2025 Depression Answer Date Recorded Patient Health Questionnaire-2 Score 0 03/25/2024 Internet Access Answer Date Recorded Internet Access Q1 Yes 04/02/2025 Internet Access Q2 Not on file 04/02/2025 Sex and Gender Information Value Date Recorded Sex Assigned at Male 02/04/2023 9:20 AM EDT Legal Sex Male 3:04 PM EDT Gender Identity Male 02/04/2023 9:20 AM EDT Sexual Orientation Straight 02/04/2023 9: 20 AM EDT documented as of this encounter Last Filed Vital Signs Vital Sign Reading Time Taken Comments Blood Pressure 110/70 04/09/2025 1:49 PM EDT Pulse 71 04/09/2025 1:49 PM EDT Temperature 36.2 C (97.1 F) 04/09/2025 1:49 PM EDT Respiratory Rate 20 04/09/2025 1:49 PM EDT Oxygen Saturation 99% 04/09/2025 1:49 PM EDT Inhaled Oxygen Concentration - - Weight 79.6 kg (175 lb 6.4 oz) 04/09/2025 1:49 P M EDT Height 162 cm (5' 3.78 ) 04/09/2025 1:49 PM EDT Body Mass Index 30.32 04/09/2025 1:49 PM EDT documented in this encounter Progress Notes * Tonia Canchola MD - 04/09/2025 1:45 PM EDT Subjective Patient ID: Richie Chen is a 24 y.o. male who presents for .Annual Exam. Comes w mom adoptive parents HPI Has [employer] 24 y o M from [place]ives [place] w PMX of Cerebral palsy/microcephaly/cognitive impairment,hx of meningitis at per mother with urinary and rectal incontinence at times,seizure disorder, Schizophrenia vs Bipolar? F w neurologist and psychiatrist. Pt is verbal ( poor communication) and ambulates independently at baseline Comes for annual exam Mom and pt denies new complaints Assessment and Plan: Health care maintenance -Annual exam done 04/2025 -vaccines: s/P covid 19 x3 -advised booster at vaccine clinic , per mother she does not have his vaccine records but pt has all vaccines - ---tried to get records from [place] -Dr Herndon # [phone]-vy[facility]ua fax that they could not find records of pt there , Hep B immune, ,Flu vaccine 06/2023, Tdap 12/2023 ,hep A IgG immune , MMRV immune -advised for COVID 19 and Flu vaccine in 04/2025 -ophthalmology 04/2023 : normal eval per mom -labs x annual exam today --will avoid STI labs w neg results last year and no active sexual life -will inform pt's mom w results Obesity -BMI 30 -lost 12 pounds in last 7 mo -eating healthier per mom -discussed w pt and parents about improving diet -monitor in 6 mo Seizure disorder Hx of seizure dx -no active seizure witness lately but mom states usually occurs at bedtime -EEG 01/2024 Unremarkable -neurologist saw 03/2025 Continue divalproex sodium tablet delayed release 500mg 2 tablets twice a day. Continue topiramate ER 200mg 1 capsule daily -meds refilled by sp Cognitive impairment Pt w hx of cerebral palsy. w cognitive impairment who depends of his mom for all daily activities as for shower ,dressing,etc.. Pt is verbal ( poor communication) and ambulates independently but w difficulty -has [employer]NER -tried before through to help mom to get info for day programs but per mom ,pt will not be goingconsistently to program so would rather not to start Schizophrenia Per mom hx of schizophrenia with auditory hallucinations but reports as well Bipolar? -alprazolam 0.5 mg PRN -Px by psychiatrist -ziprasidone 40 mg BID -intuniv 0.3 mg HS x concentration possible x ADHD? -desmopressin x bed time urination in bed -continue care w psychiatrist-f monthly Epidermal cyst Right shoudler posterior aspect 2 cm superficial cyst and another small one next -seen by dermatology before nor rec removal per mother -per pt not bothersome -advised to monitor and to return to dermatology if becomes bothersome, mom states would like reevaluation ---req today [place] from derm to help pt w apt at [facility] referral Skin rash Appears likely pityriasis versicolor -trial w ketoconazole shampoo daily x 7 days then twice a week x 1 month -will reeval at next apt Review of Systems Constitutional: Negative. HENT: Negative. Eyes: Negative. Respiratory: Negative. Cardiovascular: Negative. Gastrointestinal: Negative. Genitourinary: Negative. Musculoskeletal: Negative. Skin: Right shoulder growing cysts and chest rash Neurological: Negative. Psychiatric/Behavioral: Negative. Objective BP 110/70 (BP Location: Left arm, Patient Position: Sitting, BP Cuff Size: Adult) Pulse 71 Temp97.1 ??F (36.2 ??C) (Temporal) Resp 20 Ht 5' 3.78 (1.62 m) Wt 175 lb 6.4 oz (79.6 kg) [id number]% BMI 30.32 kg/m?? Physical Exam Constitutional: Appearance: Normal appearance. He is obese. HENT: Head: Normocephalic and atraumatic. Right Ear: Tympanic membrane and ear canal normal. Left Ear: Tympanic membrane and ear canal normal. Mouth/Throat: Pharynx: Oropharynx is clear. Eyes: Extraocular Movements: Extraocular movements intact. Pupils: Pupils are equal, round, and reactive to light. Cardiovascular: Rate and Rhythm: Normal rate and regular rhythm. Heart sounds: No murmur heard. Pulmonary: Effort: Pulmonary effort is normal. Breath sounds: Normal breath sounds. Abdominal: Palpations: Abdomen is soft. Musculoskeletal: General: Normal range of motion. Cervical back: Normal range of motion and neck supple. Skin: General: Skin is warm. Comments: Right shoudler posterior aspect 2 cm superficial cyst and another small one next Round small rash in upper chest several lesions Neurological: General: No focal deficit present. Mental Status: He is alert and oriented to person, place, and time. Psychiatric: Mood and Affect: Mood normal. Behavior: Behavior normal. Assessment/Plan Problem List Items Addressed This Visit Health care maintenance - Primary Relevant Orders CBC auto differential Comprehensive Metabolic Panel Hemoglobin A1c Lipid Panel, Standard TSH with Reflex to Free T4 Vitamin D, 25-Hydroxy, Total, Immunoassay Seizure disorder (CMS/HCC) Relevant Medications topiramate (Topamax) 200 MG tablet melatonin 5 MG tablet Schizophrenia (CMS/HCC) Relevant Medications topiramate (Topamax) 200 MG tablet melatonin 5 MG tablet Skin rash Relevant Medications benzoyl peroxide (PanOxyl Foaming Wash) 10 % external wash ketoconazole (NIZOral) 2 % shampoo (Start on 04/12/2025) Other Visit Diagnoses Dietary counseling Relevant Medications topiramate (Topamax) 200 MG tablet Exercise counseling Relevant Medications topiramate (Topamax) 200 MG tablet documented in this encounter Plan of Treatment Scheduled Orders Name Type Priority Associated Diagnoses Orde r Schedule CBC auto differential Lab Routine Health care maintenance Expected: 04/09/2025 (Approximate), Expires: 04/09/2026 Comprehensive Metabolic Panel Lab Routine Health care maintenance Expected: 04/09/2025 (Approximate), Expires: 04/09/2026 Hemoglobin A1c Lab Routine Health care maintenance Expected: 04/09/2025 (Approximate), Expires: 04/09/2026 Lipid Panel, Standard Lab Routine Health care maintenance Expected: 04/09/2025 (Approximate), Expires: 04/09/2026 TSH with Reflex to Free T4 Lab Routine Health care maintenance Expected: 04/09/2025 (Approximate), Expires: 04/09/2026 Vitamin D, 25-Hydroxy, Total, Immunoassay Lab Routine Health care maintenance Expected: 04/09/2025 (Approximate), Expires: 04/09/2026 documented as of this encounter Visit Diagnoses Diagnosis Health care maintenance- Primary Dietary counseling Dietary surveillance and counseling Exercise counseling Schizophrenia, unspecified type (CMS/HCC) Seizure disorder (CMS/HCC) Unspecified epilepsy without mention of intractable epilepsy Skin rash Rash and other nonspecific skin eruption documented in this encounter Additional Health Concerns Assessment Noted Time PHQ-9 Depression Total Score: 0 03/25/20 24 10:53 AM EDT documented as of this encounter Care Teams Ground Instructor Basic Relationship Specialty Start Date End Date Tonia Carlson MD [address] [place] [id number] PCP - General Internal Medicine 02/04/23 documented as of this encounter
--- OUTSIDE RECORDS SUMMARY | 2025-04-12 09:25 | XMS_ITS | Encounter Summary ---
Author Organization [employer] Address [address] [place] [address] [address], [place] [address] Care Team Providers Care Rod Mill Operator Name Role Phone Tonia Carlson MD Primary Care Pro vider Reason for Visit * Reason Comments Med Refill Encounter Details Date Type Department Care Team ([facility] st Contact Info) Description 04/14/2023 Refill [facility] [address] [place] [address] Tonia Carlson MD [address] [place] [address] Social History Tobacco Use Types Packs/Day Years [...] as of this encounter Plan of Treatment Not on file documented as of this encounter Visit Diagnoses Not on filedocumented in this encounter Additional Health Concerns Assessment Noted Time PHQ-9 Depression Total Score: 13 023 10:35 AM EDT documented as of this encounter Care Teams Rod Mill Operator Relationship Specialty Start Date End Date Tonia Carlson MD [address] [place] [address] PCP - General Internal Medicine 02/04/23 documented as of this encounter
--- OUTSIDE RECORDS SUMMARY | 2025-04-12 09:25 | XMS_ITS | Clinical Summary ---
Author Organization [employer] Address [address] [place] [address] Care Team Providers Care Email Manager Name Role Phone Tonia Carlson MD Primary Care Pro vider Allergies No known active allergies Medications * This document contains information received from the source organization and may not represent a complete record from that organization. divalproex (Depakote) 500 MG EC tablet Take 2 tablets (1,000 mg) by mouth 2 times daily. Do not crush, chew, or split. 120 tablet 2 02/05/20 23 Active LORazepam (Ativan) 0.5 MG tablet TAKE 1 TABLET BY MOUTH EVERY DAY IN THE MORNING 30 tablet 08/21/19 24 Active OLANZapine (ZyPREXA) 2.5 MG tablet 12/12/19 24 Active desmopressin (DDAVP) 0.1 MG tablet TAKE 1 TABLET BY MOUTH AT BEDTIME 90 tablet 03/25/20 24 Active traZODone (Desyrel) 50 MG tablet TAKE 1/2 TO 1 TABLET BY MOUTH AT BEDTIME NEEDED FOR SLEEP 30 tablet 03/25/20 24 Active guanFACINE (Intuniv) 3 mg 24 hr tablet TAKE 1 TABLET BY MOUTH EVERY MORNING 90 tablet 03/26/20 24 Active cholecalcifero l (Vitamin D-3) 25 MCG tablet Take 1 tablet by mouth Once per day. 90 tablet 1 09/17/19 25 Active topiramate (Topamax) 200 MG tablet Take 1 tablet by mouth Once per day. 08/20/19 25 Active melatonin 5 MG tablet TAKE 1 TO 2 TABLETS BY MOUTH EVERY DAY AT BEDTIME FOR SLEEP 03/24/20 25 Active benzoyl peroxide (PanOxyl Foaming Wash) 10 % external wash Apply topically Once per day. Use with showers 227 g 3 04/09/20 25 Active ketoconazole (NIZOral) 2 % shampoo Apply topically 2 (two) times a week. 120 mL 1 04/12/20 25 Active benzoyl peroxide (PanOxyl Foaming Wash) 10 % external wash Apply topically in the morning. Use with showers 227 g 3 06/07/20 23 025 Discontinued(Re order (will not trigger notification to Pharmacy)) topiramate (Topamax) 100 MG tablet Take 1 tablet (100 mg) by mouth 2 times daily. 60 tablet 12/22/19 25 025 Discontinued(Ot her) Active Problems Problem Noted Date Diagnosed Date Skin rash 04/11/2025 Anxiety 03/31/2024 Epidermal cyst 03/25/2024 Obesity 03/25/2024 [...] requested record to [facility] For previous PCP,ball thread machine tender ,neurologist and vaccine records-still not obtained -referred to ophthalmology -pd to get apt Assessment & Plan (02/04/2023 12:31 PM EDT): -labs x annual exam today in fasting -mom agreed to have STI testing including HIV to have for baseline -vaccines: s/P covid 19 x3 , per mother she does not have his vaccine records- ----I requested record to [facility] For previous PCP,ball thread machine tender ,neurologist and vaccine records -referred to ophthalmology [...] will discuss w mother if would like SLAT TWISTER Assessment & Plan (02/04/2023 12:20 PM EDT): [...] will discuss w mother if would like SLAT TWISTER Schizophrenia 02/04/2023 Assessment & Plan (03/06/2023 5:44 PM EDT): Per mom hx of schizophrenia with auditory hallucinations but reports as well Bipolar? -confirmed all meds with pharmacy at [place] at last visit -refilled x now until [...] today again to mom printed info of CB or her to call Assessment & Plan [...] Encounters Date Type Department Care Team Description 04/09/2025 1:45 PM EDT Office Visit [facility] [address] [place] [id number] Tonia Carlson MD Health care maintenance (Primary Dx); Dietary counseling; Exercise counseling; Schizophrenia, unspecified type (CMS/HCC); Seizure disorder (CMS/HCC); Skin rash 04/09/2025 Telephone [facility] [address] [place] [phone] Tonia Carlson MD telephone call 04/09/2025 Travel 04/02/2025 Patient Outreach [facility] [address] [place] [address] Tonia Carlson MD Pre-visit Planning (SDOH screening negative and tobacco screening negative) 02/15/2025 Orders Only [facility] [address] [place] [address] Tonia Carlson MD Epidermal cyst (Primary Dx); Skin lesions 02/12/2025 Telephone [facility] [address] [place] [address] Tonia Carlson MD Appointment Request from Last [...] Mass Index 30.32 04/09/2025 1:49 PM EDT Plan of Treatment Health Maintenance Due Date Last Done Comments Disability Screening 1999 Alcohol/Substance Use Screening 2011 Family Planning (PISQ) 2014 HPV Vaccines (1 - Male 3-dos e series) 2014 Hepatitis B Vaccines (1 of 3 - 19+ 3-dose series) 2018 Depression Screening 03/25/2025 03/25/2024, 03/25/2024 COVID-19 Vaccine (1 - 2023-2 5 season) 2025 Influenza Vaccine (#1) 2025 06/20/2023 SDOH Screening 04/02/2026 04/02/2025 Tobacco Screening 04/09/2026 04/09/2025 Lipid Panel 03/07/2028 03/07/2023 DTaP/Tdap/Td Vaccines (2 [...] Routine 03/07/2023 9:50 AM EDT HIV ANTIBODY/ANTIGEN ([place] ANAHI) Routine 03/07/2023 9:50 AM EDT LIPID PANEL, STANDARD Routine 03/07/2023 9:50 AM EDT Health care maintenance from Last 3 Months or Most Recently Relevant to Health Maintenance Results * Hepatitis C Antibody Reflex (03/07/2023 9:50 AM EDT) Hepatitis C Antibody Nonreactive Nonreactive [facility] Comment:Antibodies to HCV no t detected; does not exclude early acuteHCV infection. 03/07/2023 9:50 AM EDT 03/07/2023 11:21 AM EDT us Tonia Canchola MD LAB BLOOD ORDERAB LES Final Result [facility] [address] [place] [phone] * HIV Ab/Ag ([place] DPH) (03/07/2023 9:50 AM EDT) HIV AB/AG Nonreactive Nonreactive [facility] Comment:HIV-1 p24 Ag and/or HIV-1/HIV-2 Ab not detected.A test result that is nonreactive does not exclude thepossibility of exposure to or infection with HIV-1 and/orHIV-2. Nonreactive results in this assay for individualswith prior exposure to HIV-1 and/or HIV-2 may be due toantigen and antibody levels that are below the limit ofdetection of this assay.The [employer] Certified Orthoptist HIV Ag/Ab Combo assay result andsupplemental assay results should be interpreted inconjunction with the patient's clinical presentation,history and other laboratory results. If the results areinconsistent with clinical evidence, additional testing issuggested to confirm the result. 03/07/2023 9:50 AM EDT 03/07/2023 11:21 AM EDT us Tonia Canchola MD LAB BLOOD ORDERAB LES Final Result [facility] [address] [place] [phone] * Lipid Panel, Standard (03/07/2023 9:50 AM EDT) Triglycerides 95 mg/dL [facility] Comment:Desirable Triglyceri de: less than 150 mg/dLBorderline High Triglyceride 150-199 mg/dLHigh Triglyceride: 200-499 mg/dLVery High Triglyceride: greater than or equal to 5OO mg/dL Cholesterol 140 mg/dL [facility] Comment:Desirable Cholestero l: less than 200 mg/dLBorderline High Cholesterol: 200-239 mg/dLHigh Cholesterol: greater than 239 mg/dL LDL Cholesterol Calculated 78 mg/dl [facility] Comment:Desirable LDL: less than 100 mg/dLNear Optimal/Above Optimal LDL: 110- 129 mg/dLBorderline High LDL: 130-159 mg/dLHigh LDL: 160-189 mg/dLVery High LDL: greater than or equal to 190 mg/dL HDL Cholesterol 43 mg/dL [facility] Comment:Desirable HDL: great er than 40 mg/dL Note: This HDL assay may give artificially low results in patients with liver disease. Blood Venous blood specimen / Unknown 03/07/2023 9:50 AM EDT 03/07/2023 11:21 AM EDT Tonia Canchola MD LAB BLOOD ORDERAB LES Final Result [facility] [address] [place] [phone] [phone] from Last 3 Months or Most Recently Relevant to Health Maintenance Insurance [facility] < [address] [place] [id number] Care Teams Email Manager Relationship Specialty Start Date End Date Tonia Carlson MD [address] [place] [address] PCP - General Internal Medicine 02/04/23
--- OUTSIDE RECORDS SUMMARY | 2025-04-12 09:25 | XMS_ITS | Encounter Summary ---
Author Organization [employer] Address [address] [place] [address] 7 [place] [address] Care Team Providers Care Computer Clerk Name Role Phone Tonia Carlson MD Primary Care Pro vider Reason for Visit * Reason Onset Date Comments New Patient Appt 01/07/2023 Encounter Details Date Type Department Care Team ([facility] st Contact Info) Description 01/07/2023 Telephone [facility] [address] [place] [address] Festus Moreno MD [address] [place] [address] New Patient Appt Social History Tobacco Use [...] called pt mother Tonia Chen to Offer CERTIFIED CREDIT COUNSELOR appt. Pt demographics and insurance information were verified. Mother reports the Following medical conditions: Brain Condition, Microscopic, Developmental Issues, Pilostic, Schizophrenia, and New Skin problem. Mother currently takes M edications: Depaconic 500 mg Tablet, Atiya 200 mg Tablet, Jardiance 40 mg Tablet and desmopressin. CERTIFIED CREDIT COUNSELOR appt with on 02/04/[address] Almaraz @ 9:15 am. Pt will be sent appt reminder card and medical release form and agrees to complete and to return to medical records prior to CERTIFIED CREDIT COUNSELOR appt. documented in this encounter Plan of Treatment Not on file documented as of this encounter Visit Diagnoses Not on filedocumented in this encounter Care Teams Computer Clerk Relationship Specialty Start Date End Date Tonia Carlson MD [address] [place] [id number] PCP - General Internal Medicine 02/04/23 documented as of this encounter
--- OUTSIDE RECORDS SUMMARY | 2025-04-12 09:25 | XMS_ITS | Encounter Summary ---
Author Organization [employer] Address [address] [place] [address] [address] [place] [address] Care Team Providers Care Ship Scaler Name Role Phone Tonia Carlson MD Primary Care Pro vider Reason for Visit * Reason Onset Date Comments PA 06/29/2024 Encounter Details Date Type Department Care Team ([facility] st Contact Info) Description 06/29/2024 Telephone [facility] [address] [place] [address] Tonia Carslon MD [address] [place] [address] PA Social History Tobacco Use Types Packs/Day [...] the 200mg ER. Med is available for orange picker machine operator now at [facility] - advised her to read instructions carefully and call [facility] if any questions Pt's mom verbalized understanding, [...] Called pt's mother Tonia (legal guardian) using Pixelated fishing vessel operator #[id number] [place]. Tonia declined interior specialist. Advised her that per PCP, topiramate 200mg ER only comes as a capsule and PCP recommends that the pt request this med and all anti seizure meds through Dr Mcdonnell (neurologist). Gave phone number to call his office [phone]. Called [facility] pharmacy and spoke to Ibis who stated [...] documented as of this encounter Care Teams Ship Scaler Relationship Specialty Start Date End Date Tonia Carlson MD [address] [place] [phone] PCP - General Internal Medicine 7/3/23 documented as of this encounter
--- OUTSIDE RECORDS SUMMARY | 2025-04-12 09:25 | XMS_ITS | Encounter Summary ---
Author Organization [employer] Address [address] [place] [address] Care Team Providers Care Cloth Cutter Name Role Phone Tonia Carlson MD Primary Care Pro vider Encounter Details Date Type Department Care Team (Latest Contact Info) Description 04/09/2025 Travel Social History Tobacco Use Types Packs/Day [...] documented as of this encounter Care Teams Cloth Cutter Relationship Specialty Start Date End Date oTnia Carlson MD [address] [place] [id number] PCP - General Internal Medicine 02/04/23 documented as of this encounter
--- OUTSIDE RECORDS SUMMARY | 2025-04-12 09:25 | XMS_ITS | Encounter Summary ---
Author Organization [employer] Address [address] [place] [address] [address] [place] [address] Care Team Providers Care Container Shop Welder Name Role Phone Tonia Carlson MD Primary Care Pro vider Reason for Visit * Reason Onset Date Comments telephone call 04/09/2025 Encounter Details Date Type Department Care Team ([facility] st Contact Info) Description 04/09/2025 Telephone [facility] [address] [place] [address] Tonia Carlson MD [address] [place] [address] telephone call Social History Tobacco Use Types Packs/Day Years [...] encounter Miscellaneous Notes * Telephone Encounter - Mary Méndez - 04/09/2025 2:54 PM EDT Pt walked in re questing a appt with Dermatology. documented in this encounter Plan of Treatment Not on file documented as of this encounter Visit Diagnoses Not on filedocumented in this encounter Additional Health Concerns Assessment Noted Time PHQ-9 Depression Total Score: 0 03/25/20 24 10:53 AM EDT documented as of this encounter Care Teams Container Shop Welder Relationship Specialty Start Date End Date Tonia Carlson MD [address] [place] [phone] PCP - General Internal Medicine 02/04/23 documented as of this encounter
--- OUTSIDE RECORDS SUMMARY | 2025-04-12 09:25 | XMS_ITS | Encounter Summary ---
Author Organization [employer] Address [address] [facility] [address] [place] [address] Care Team Providers Care Tobacco Sampler Name Role Phone Tonia Carlson MD Primary Care Pro vider Encounter Details Date Type Department Care Team ([facility] st Contact Info) Description 06/30/2024 Orders Only [facility] [address] [place] [address] Tonia Carlson MD [address] [place] [address] Social History Tobacco Use Types Packs/Day Years [...] documented as of this encounter Care Teams Tobacco Sampler Relationship Specialty Start Date End Date Tonia Carlson MD [address] [place] [phone] PCP - General Internal Medicine 02/04/23 documented as of this encounter
--- OUTSIDE RECORDS SUMMARY | 2025-04-12 09:25 | XMS_ITS | Encounter Summary ---
Author Organization [employer] Address [address] [facility] [address] [place] [address] Care Team Providers Care Ccu Nurse Name Role Phone Tonia Carlson MD Primary Care Pro vider Reason for Visit * Reason Comments Med Refill Encounter Details Date Type Department Care Team ([facility] Contact Info) Description 12/23/2024 Refill [facility] MED[facility] [address] [place] [address] Tonia Carlson MD [address] [place] [address] Social History Tobacco Use Types Packs/Day Years [...] documented as of this encounter Care Teams Ccu Nurse Relationship Specialty Start Date End Date Tonia Carlson MD [address] [place] [phone] PCP - General Internal Medicine 02/04/23 documented as of this encounter
--- OUTSIDE RECORDS SUMMARY | 2025-04-12 09:25 | XMS_ITS | Encounter Summary ---
Author Organization [employer] Address [address] [facility] [address] [place] [address] Care Team Providers Care Medical Auditor Name Role Phone Tonia Carlson MD Primary Care Pro vider Encounter Details Date Type Department Care Team ([facility] st Contact Info) Description 06/29/2024 Orders Only [facility] MED[facility] [address] [place] [address] Tonia Carlson MD [address] [place] [address] Social History Tobacco Use Types Packs/Day Years [...] documented as of this encounter Care Teams Medical Auditor Relationship Specialty Start Date End Date Tonia Carlson MD [address] [place] [id number] PCP - General Internal Medicine 02/04/23 documented as of this encounter
[2025-04-12 11:22] LABS: MANUAL DIFF FLAG NO
[2025-04-12 11:31] LABS: Hematocrit 44.6 % (42.0-52.0); Hemoglobin 14.6 g/dl (14.0-18.0); Imm Gran Abs Auto 0.02 X10*3/uL (0.00-0.03); Imm Gran Pct Auto 0.2 % (0.0-0.4); Lymphocytes Absolute Auto 4.6 X10*3/uL (1.2-4.9); Mean Corpuscular HGB Conc 32.7 g/dl (31.0-36.0); Mean Corpuscular Hemoglobin 28.9 pg (27.0-33.0); Mean Corpuscular Volume 88.3 fL (80.0-98.0); NRBC Abs Auto 0.000 X10*3/uL (0.0-0.012); NRBC Pct Auto 0.0 /100WBC (0.0-0.2); Platelet Count 305 X10*3/uL (160-400); Red Blood Count 5.05 X10*6/uL (4.60-5.80); White Blood Count 8.0 X10*3/uL (4.8-10.8)
[2025-04-12 11:43] LABS: Hemoglobin A1C 133.8536 umol/L; Total Hemoglobin (HGBA1C) 3783.7003 umol/L
[2025-04-12 11:53] LABS: Alanine Aminotransferase 14 U/L (0-40); Albumin Level 4.3 g/dL (3.5-5.0); Alkaline Phosphatase 47 U/L (39-117); Anion Gap 12 (12-20); Aspartate Amino Transferase 21 U/L (5-37); Blood Urea Nitrogen 9 mg/dL (9-16); Calcium 9.8 mg/dL (8.4-10.2); Carbon Dioxide 22 mmol/L (22-29); Chloride 114 mmol/L (96-108); Cholesterol 138 mg/dL (<200); Estimated Glomerular Filt Rate > 60; HDL Cholesterol 40 mg/dL (>40); Potassium 4.2 mmol/L (3.3-5.1); Sodium 144 mmol/L (135-145); Total Protein 7.4 g/dL (6.5-8.0); Triglycerides 136 mg/dL (<150)
== END 2025-04-12 08:28 | disposition home or self-care (01) ==
LOC: HO.HHCL 08:27
PROVIDERS: PCP Student in an Organized Health Care Education/Training Program; Visit Provider Student in an Organized Health Care Education/Training Program
DX: Z00.00 Encounter for general adult medical examination without abnormal findings (principal); Z13.29 Encounter for screening for other suspected endocrine disorder; Z13.0 Encounter for screening for diseases of the blood and blood-forming organs and certain disorders involving the immune mechanism; Z13.1 Encounter for screening for diabetes mellitus; Z13.6 Encounter for screening for cardiovascular disorders
CPT/HCPCS: 36415; 80053; 80061; 82306; 83036; 84443; 85025

== ENCOUNTER 2025-06-06 16:23 | Emergency (ER) | payer OTHER, SELFPAY ==
--- NOTE | ~2025-06-06 | US_ITS ---
CLINICAL HISTORY: scrotal swelling pain US Scrotum with Doppler and spectral tracings Comparison: None provided Findings: Right testicle normal echotexture, 5.1 x 2.7 x 2.7 cm cm. There is a large right hydrocele measuring 12.1 x 9.4 x 9.0 cm. Right epididymis not well visualized. Left testicle normal echotexture, 4.0 x 2.4 x 3.4 cm. Left epididymis is normal. There is a small left epididymal cyst. Normal color flow and arterial/venous spectral tracing of both testicles. Epididymides are unremarkable. No varicoceles. No hydroceles. IMPRESSION: Large right hydrocele. Otherwise normal appearance of the bilateral testes. No evidence of torsion. Normal Doppler, arterial and venous flow in bilateral testicles. This document has been electronically signed by: Bernardo Hines III, MD PHD on 06/06/2025 22:21:53
--- NOTE | ~2025-06-06 | XR_ITS ---
CLINICAL HISTORY: constipation? 1 view abdomen Comparison: None provided Findings: No pneumoperitoneum or pneumatosis. Stool and bowel gas extend from the cecum to the rectosigmoid. No abnormal air-fluid levels No abnormal calcifications. Small left pelvic calcification. No acute fractures. No radiodense foreign objects. IMPRESSION: Moderate burden of stool in the colon without evidence for obstruction. This document has been electronically signed by: Bernardo Hines III, MD PHD on 06/07/2025 00:07:50
--- NOTE | 2025-06-06 16:26 | ED.GENADULT ---
HPI - General Adult General Chief complaint: Urogenital-Male Stated complaint: ? something in the private area Time Seen by Provider: 06/06/25 20:06 Source: patient and family Limitations: other (Cognitive impairment) History of Present Illness ED Provider: Saranya Batista PA-C HPI narrative: 24-year-old male with a history of microcephaly, epilepsy, chronic encephalopathy, who is here accompanied by his parents with testicular pain and swelling x2 weeks. There was no trauma that preceded the swelling. His testicles continually increased in size and become red. Denies dysuria, penile discharge or risk for STD. Denies abdominal pain, distention, nausea vomiting. Related Data Home Medications ?Medication ?Instructions ?Recorded ?Confirmed cholecalciferol (vitamin D3) 25 25 mcg PO DAILY 03/22/25 03/29/25 mcg (1,000 unit) tablet guanfacine 3 mg tablet,extended 3 mg PO BEDTIME 03/22/25 03/29/25 release 24 hr melatonin 5 mg tablet 5 - 10 mg PO BEDTIME insomnia 03/22/25 03/29/25 olanzapine 15 mg tablet 15 mg PO BEDTIME 03/22/25 03/29/25 trazodone 100 mg tablet 200 mg PO BEDTIME 03/22/25 03/29/25 Previous Rx's ?Medication ?Instructions ?Recorded divalproex 500 mg tablet,delayed 1,000 mg (2 x 500 mg) PO BID 90 03/29/25 release days #360 tabs topiramate 200 mg capsule,extended 200 mg PO DAILY 90 days #90 caps 03/29/25 release 24 hr ketorolac 10 mg tablet 10 mg PO Q6H PRN pain #20 tabs 06/07/25 Allergies Allergy/AdvReac Type Severity Reaction Status Date / Time No Known Allergies Allergy Verified 06/06/25 16:29 Review of Systems Review of Systems: Yes all other systems are reviewed and are negative Constitutional: Constitutional: Denies fatigue and Denies fever(s) Cardiovascular: Cardiovascular: Denies chest pain and Denies dyspnea Respiratory: Respiratory: Reports pain with cough and Denies dyspnea Gastrointestinal: Gastrointestinal: Denies abdominal pain, Denies bloating, Denies nausea and Denies vomiting Genitourinary: Genitourinary: Denies dysuria, Denies penile discharge, Reports scrotal swelling and Reports testicular pain Endocrine: Endocrine: Denies fatigue PMFSH Past Medical History Attestation statement: The following information was validated with the patient. Medical History (Updated 06/08/25 @ 00:01 by Mary Jo Vences) Microcephaly Epilepsy Chronic static encephalopathy Physical Exam ED Vital Signs: Vital Signs - 24 hr 06/06/25 16:27 06/06/25 18:36 06/06/25 21:32 Temperature 97.0 F 98.4 F 98.0 F Pulse Rate 109 H 113 H 110 H Respiratory Rate 16 18 16 Blood Pressure 143/66 H 138/93 H 126/87 Pulse Oximetry 100 99 100 Oxygen Delivery Method Room Air Room Air Room Air BMI result Body Mass Index 31.2 Const Other: Alert Orientation/consciousness: oriented to person Resp Effort & Inspection: normal respiratory effort Cardio Other: Normal peripheral perfusion GI Other: Soft nondistended Other: Scrotum is extremely swollen enlarged the size of a grapefruit, with the overlying erythema no penile discharge noted Skin Other: Warm dry no rash Neuro General: oriented to person, gait normal, no focal motor deficits and CN's II-XI intact bilaterally Psych Other: Cooperative Course Course Course Narrative: This is a Rapid Medical Exam performed in triage by Carly Chew PA-C. Full HPI, ROS and PE to be performed by primary ED provider. 24 yo M w/pmhx microcephaly, related encephalopathy, epilepsy presenting to the ED c/o testicular swelling / erythema & dysuria x 2 wks, worsening. Hx obtained from mother PE: in wheelchair, NAD. area not evaluated in triage Plan: UA Medications Administered Discontinued Medications Generic Name Dose Route Start Last Admin Trade Name Freq PRN Reason Stop Dose Admin Ketorolac Tromethamine 15 mg 06/06/25 20:47 06/06/25 21:30 Ketorolac Tromethamine 15 Mg/Ml Vial IM 06/06/25 20:48 15 mg ONCE ONE Administration Medical Decision Making Medical Decision Making [facility] Narrative: 24-year-old male with a history of microcephaly, epilepsy, chronic encephalopathy, who is here accompanied by his parents with testicular pain and swelling x2 weeks. There was no trauma that preceded the swelling. His testicles continually increased in size and become red. Denies dysuria, penile discharge or risk for STD. Denies abdominal pain, distention, nausea vomiting. Problem: Cognitive impairment History: Per patient's parents I have considered the following differential diagnoses: Torsion, epididymitis, orchitis, trauma, hernia, bowel obstruction Plan: Scrotal ultrasound was ordered from triage, the patient has a very large hydrocele No evidence of epididymitis or orchitis, there was no large hernia. He also has no risk factors for STD. UA was collected, the urine is not infected. He does not need STD testing. I will provide him with a contact for Urology given the size of the hydrocele. I have independently reviewed the following tests: Scrotal ultrasound: IMPRESSION: Large right hydrocele. Otherwise normal appearance of the bilateral testes. No evidence of torsion. Normal Doppler, arterial and venous flow in bilateral testicles. KUB:Findings: No pneumoperitoneum or pneumatosis. Stool and bowel gas extend from the cecum to the rectosigmoid. No abnormal air-fluid levels No abnormal calcifications. Small left pelvic calcification. No acute fractures. No radiodense foreign objects. IMPRESSION: Moderate burden of stool in the colon without evidence for obstruction. This document has been electro Labs: Urine not infected Differential Diagnosis Differential Diagnoses: The differential diagnosis associated with the presentation includes See [facility] Admission/Observation Consideration of admission/observation: Escalation of care including admission/observation considered Not applicable Consult Healthcare Provider Management of the patient was discussed with: Poiser Balance Sent with Urology contact Lab Data [facility] Lab Attestation statement: I reviewed the patient's lab results. Labs: Lab Results 06/06/25 06/06/25 Range/Units 18:50 21:42 Urine Color Yellow Urine Appearance Clear Urine pH 7.5 (5.0-9.0) Ur Specific [place] 1.015 (1.005-1.025) Urine Protein Negative (Neg-Trace) mg/dL Urine Glucose (UA) Negative (Negative) mg/dL Urine Ketones Negative (Negative) mg/dL Urine Blood Negative (Negative) Urine Nitrite Negative (Negative) Ur Leukocyte Esterase Negative (Negative) Ur N gonorrhoeae DNA (PCR) NOT DETECTED (Not Detect.) Ur Chlamydia DNA (PCR) NOT DETECTED (Not Detect.) Radiology Impression Discussion of test interpretation with radiology: I have reviewed the radiologist's reading. Discharge Plan Discharge Clinical Impression: Constipation, Hydrocele, right Patient Disposition: Home, Self-Care Instructions: Constipation (ED) Additional Instructions: You were found to have a large right-sided hydrocele associated with the testicles. This is a fluid collection. I am providing you with a contact for our urology service, call tomorrow to make an appointment, to discuss care options. You can use the ketorolac as needed for pain, take it with food. The urine sample was not infected. You were also found to be considerably constipated. See home care instructions. You should use [id number] Colace, this is a stool softener twice a day. You should also use MiraLax several times a day, 3-4, until you begin having multiple large volume bowel movements. Prescriptions: New ketorolac 10 mg tablet 10 mg PO Q6H PRN (Reason: pain) Qty: 20 0RF Rx Instructions: maximum total duration of 5 days from all oral, intranasal, or parenteral formulations. An intramuscular form of Toradol here in the emergency room No Action trazodone 100 mg tablet 200 mg PO BEDTIME olanzapine 15 mg tablet 15 mg PO BEDTIME cholecalciferol (vitamin D3) 25 mcg (1,000 unit) tablet 25 mcg PO DAILY melatonin 5 mg tablet 5 - 10 mg PO BEDTIME guanfacine 3 mg tablet extended release 24 hr 3 mg PO BEDTIME topiramate 200 mg capsule,extended release 24hr 200 mg PO DAILY 90 Days Qty: 90 1RF divalproex 500 mg tablet,delayed release (DR/EC) 1,000 mg PO BID 90 Days Qty: 360 1RF Referrals: Jameel Cheung MD [Physician, Urology] Referral Note: large right hydrocele measuring 12.1 x 9.4 x 9.0 cm., swollen/painful Interventions: ED Discharge Assessment Last Done: 06/07/25 00:45 Discharge Date/Time: 06/07/25 00:46 Print Language: Bermudian
[2025-06-06 16:27] VITALS: BP 143/66; PULSE 109; RESP 16; TEMP 36.1; O2SAT 100; BMI 31.2
--- OUTSIDE RECORDS SUMMARY | 2025-06-06 18:19 | XMS_ITS | Data Portability ---
Author Organization [employer], [facility] Address [address] [place] [id number] Care Team Providers Care Informatics Pharmacist Name Role Phone HIM [facility] OTHER Assessment Encounter Date Assessment Date Assessment LastModified by Organization Details LastModified Time 09/03/2024 09/03/2024 I have reviewed and agree with the Assessment and Plan as documented by the Logistics Management Specialist. I provided real-time medical direction via phone for this encounter, and was available for additional phone based assistance as needed. I would add/emphasize: Patient seen for >6 months of increasing CAMEJO and weight gain. No CP or other recent illnesses. AVSS and well appearing per report. Given report of snoring and weight gain family requesting eval for MADISON. No orthopnea or edema per report. PERC negative doubt PE. Lungs clear per report. PATIENT WOULD BENEFIT FROM CLOSE FOLLOW UP WITH PCP FOR COMPREHENSIVE EVAL OF CONCERNING SXS OF DYSPNEA ON EXERTION. pallfather Not available 09/04/2024 09:30:26 Plan of Treatment Reminders Order Date Submit Date Provider Last Modified By Organization Details Last Modified Time Details Appointments None record ed. Lab None record ed. Referral None record ed. Procedures None record ed. Surgeries None record ed. Imaging None record ed. Medication Orders None record ed. Patient TargetsNo targets recorded. Patient InstructionsNo instructions recorded. Reason for Referral None Reported. Medical Equipment None Reported. Allergies No known drug allergies Medications Name Sig Start Date Stop Date Status Note LastModified by Organization Details LastModified Time amoxicillin 500 mg capsule TAKE 1 CAPSULE BY MOUTH EVERY 8 HOURS WITH FOOD active Not Available Not Available No t Available ketoconazole 2 % shampoo APPLY TOPICALLY TWICE A WEEK DIRECTED active Not Available Not Available No t Available trazodone 50 mg tablet TAKE 1 TO 2 TABLETS BY MOUTH EVERY DAY AT BEDTIME FOR SLEEP active Not Available Not Available No t Available ibuprofen 800 mg tablet TAKE 1 TABLET BY MOUTH EVERY 8 HOURS FOR PAIN active Not Available Not Available No t Available olanzapine 5 mg tablet TAKE 1 TABLET BY MOUTH EVERY EVENING active Not Available Not Available No t Available divalproex 500 mg tablet,delaye d release TAKE 2 TABLETS BY MOUTH TWICE DAILY active Not Available Not Available No t Available olanzapine 2.5 mg tablet Take 1 tablet by mouth every night active Not Available Not Available No t Available ziprasidone 20 mg capsule TAKE 2 CAPSULES BY MOUTH EVERY DAY IN THE MORNING FOR AGITATION AND agression active Not Available Not Available No t Available lorazepam 0.5 mg tablet TAKE 1 TABLET BY MOUTH TWICE DAILY NEEDED active Not Available Not Available No t Available trazodone 100 mg tablet TAKE 1 OR 2 TABLETS BY MOUTH AT BEDTIME active Not Available Not Available N ot Available olanzapine 15 mg tablet TAKE 1 TABLET BY MOUTH EVERY NIGHT active Not Available Not Available No t Available topiramate 200 mg tablet TAKE 1 TABLET BY MOUTH EVERY DAY active Not Available Not Available No t Available ziprasidone 60 mg capsule TAKE 1 CAPSULE BY MOUTH EVERY DAY AT BEDTIME active Not Available Not Available N ot Available topiramate 100 mg tablet TAKE 1 TABLET BY MOUTH TWICE DAILY active Not Available Not Available No t Available desmopressin 0.1 mg tablet TAKE 1 TABLET BY MOUTH AT BEDTIME active Not Available Not Available No t Available aripiprazole 5 mg tablet TAKE 1 TABLET BY MOUTH EVERY DAY DIRECTED active Not Available Not Available No t Available cholecalcifer ol (vitamin D3) 25 mcg (1,000 unit) tablet Take 1 tablet by mouth Once per day. active Not Available Not Available No t Available guanfacine ER 3 mg tablet,extend ed release 24 hr TAKE 1 TABLET BY MOUTH EVERY MORNING active Not Available Not Available No t Available topiramate XR 200 mg capsule,exten ded release 24 hr TAKE 1 CAPSULE BY MOUTH EVERY DAY IN THE MORNING active Not Available Not Available No t Available Vitals Date Recorded Heart rate Body height Oxygen saturation Oxygen saturation in Arterial blood by Pulse oximetry Body weight Body temperature Respiratory rate Heart rate Systolic And Diastolic Provider Name and Address Organization Details Last Updated DateTime 5 100 /min 167.64 cm 99 % 99 % 55776.4 g 97.8 [degF] 18 /min 96 /min 135/92 mm[Hg] Not Available [facility] - production 5 12:16:08 Social History None recorded. Functional Status None recorded. Mental Status None recorded. Family History Nothing Reported. Medical History No medical history recorded. Past Encounters Encounter ID Performer Location Encounter Start Date Encounter Closed Date Diagnosis/Indication Diagnosis SNOMED-CT Code Diagnosis ICD10 Code Diagnosis IMO Codes Diagnosis Note [id number] Donny Saldana MD [facility] - [facility] [address] [place] [address] 09/03/2024 12:14:50 09/08/2024 15:57:56 Dyspnea on exertion 51124804 R06.09 Health Concerns Section Related Observation LastModified by Organization Detai ls LastModified Time None Recorded Concern Status LastModified by Organization Details LastModified Time None Recorded Advance Directives Directive None Recorded Payers Insurance Date Sequence Insurance Name Policy Number Policy [place] Covered Member ID [place] Member ID Guarantor Name 09/08/2024 1 [facility] - DOS ON OR AFTER 2022 - DUAL ELIGIBLE - LONG-TERM OPTIONS AND ONE CARE (MEDICARE REPLACEMENT/AD VANTAGE - HMO) Richie Chen [id number] Richie Chen Notes Date Note Type Note Provider Name and Address Organization Details Recorded Time 09/03/2024 text/html HPI: Mbr's mother/caregiver, Tonia reports mbr with fatigue and SOB with exertion such as walking or climbing stairs. Reports mbr with CAMEJO, labored breathing that resolves with rest. Reports onset of sx in April, but unable to get in with PCP and PCP office advised calling [facility] for home visit. Tonia also reports mbr is very tired, could sleep all day and she has concerns of sleep apnea due to loud snoring. Tonia denies mbr with CP, SOB at rest, fevers, or further s/sx. Tonia does report mbr c/o x1 episode of CP 1 month ago. Tonia denies mbr with hx of asthma, COPD, CHF. Tonia is requesting a home visit for evaluation of sx and unable to get in with PCP. Advised [facility] referral will be submitted but stressed importance of f/u with PCP for ongoing sx and concern of MADISON. Tonia was advised for new/worsening sx to call back [facility]. animal nursery worker ID #[id number] utilized for the call, ................... ................... ................... ................... ................... ................... ................... ........ [facility] Nurse Triage Notes (Becki Greer - RN): Chief Complaints: Breathing problems PMH: Schizophrenia, Epilepsy/Seizure Disorder, Incontinence, Anxiety Disorder, COPD/Asthma, Congestive Heart Failure PMH Reviewed at 09/03/2024 Allergies Reviewed at 09/03/2024: Comments: [facility] RN did not require any additional information to process this visit. ................... ................... ................... ................... ................... ................... ................... ........ Logistics Management Specialist Note From Hay Atkins: Patient s mother speaks for him, patient 24-year-old male seated at table. Patient s mother reports patient seems short of breath well walking upstairs or exerting himself. Symptoms have been consistent for the last six months. Mother reports patient gained 20 pounds over the last six months. Requests sleep apnea study. Mother reports no acute changes. Patient pink warm dry secondary exam unremarkable. Lung sounds clear negative increased work of breathing. Abdomen soft non tender extremities unremarkable. [facility] [place] will contact care team about patients. Red flags, patient education discuss. Caregiver demonstrates understanding of care and plan. Consent uploaded. ................... ................... ................... ................... ................... ................... ................... ........ [facility] Consulted: Donny Saldana ................... ................... ................... ................... ................... ................... ................... ........ Disposition: Fulfilled Donny Saldana MD [address] [facility],[address], [place], [phone], SAMAN RODAS 09/04/2024 09:31:12
[2025-06-06 18:36] VITALS: BP 138/93; PULSE 113; RESP 18; TEMP 36.9; O2SAT 99
[2025-06-06 19:00] LABS: Appearance Urine Clear; Glucose Urine UA Negative (Negative); PH 7.5 (5.0-9.0); Specific Gravity - Urine 1.015 (1.005-1.025)
[2025-06-06 21:32] VITALS: BP 126/87; PULSE 110; RESP 16; TEMP 36.7; O2SAT 100
[2025-06-07 00:37] VITALS: BP 112/74; PULSE 100; RESP 18; TEMP 36.7; O2SAT 100
[2025-06-07 00:45] VITALS: BP 112/74; PULSE 100; RESP 18; TEMP 36.7; O2SAT 100
[2025-06-07 03:17] LABS: CT PCR Urine NOT DETECTED (Not Detect.); NG PCR Urine NOT DETECTED (Not Detect.)
== END 2025-06-07 00:46 | disposition home or self-care (01) ==
PROVIDERS: Physician Assistant; Physician Assistant Medical; Emergency Provider Emergency Medicine; PCP Student in an Organized Health Care Education/Training Program
DX: N50.811 Right testicular pain (principal); N50.812 Left testicular pain; R30.0 Dysuria; N43.3 Hydrocele, unspecified; K59.00 Constipation, unspecified; Z79.899 Other long term (current) drug therapy
CPT/HCPCS: 74018; 76870; 81003; 87491; 87591; 93975; 96372; 99284; J1885

== ENCOUNTER → 2025-06-06 19:58 | Outpatient (BNV) | payer OTHER, SELFPAY | PROVIDERS: Emergency Provider Emergency Medicine; PCP Student in an Organized Health Care Education/Training Program; Visit Provider Radiology Diagnostic Radiology | DX: N50.82 Scrotal pain (principal) | CPT/HCPCS: 93975 ==